=== PATIENT | male | born 1960 | race African-American/Black ===

== ENCOUNTER 2018-07-14 19:31 | Observation (INO) ==
[2018-07-14] MEDS ORDERED: predniSONE 20 MG TABLET PO ONE (19:38)
[2018-07-14] MEDS ORDERED: Ipratropium/Albuterol Neb 3 ML IH ONE (19:38)
--- NOTE | 2018-07-14 19:46 | Emergency Department Note ---
Disposition Clinical Impression: COPD (chronic obstructive pulmonary disease) with acute bronchitis Disposition: Still a Patient General Adult HPI - General Chief complaint: ED Shortness of Breath/Dyspnea Stated complaint: SHORTNESS OF BREATH Time Seen by Provider: 07/14/18 19:33 Source: patient Limitations: no limitations - History of Present Illness HPI Narrative: Attestation note: Patient was seen with the emergency medicine resident/nurse practitioner/physician insurance sales assistant/transitional resident/medical student: Dr. SAM LAUREN I have personally performed a face to face evaluation on this patient. I have reviewed and agree with history and physical examination patient management and disposition. Briefly the salient points of the case are as follows: 57-year-old Citizen Of [place] male smoker advanced COPD we just Admitted Him for Elevated Troponin Was Admitted to the Left Heart Catheter Which Was Normal. Discharge Him Home with Elevated Troponin Secondary to COPD Comes Back with after Being Discharged Today and Not for Prednisone and Zithromax and Has Not Taken Them for Wheezing and Short of Breath. Moderate Respiratory Distress with Intercostal Retractions Tripoding and Tracheal Tugging. Patient Getting Triple DuoNeb's Steroids Chest X-Ray Screening Labs EKG. Providing 45 Minutes Critical Care Service This Patient. If the Patient Cannot Be Turned around and He Says Symptomatic Will Need to Be Admitted. Pain Scale: 7 - Related Data Home Medications Medication Instructions Recorded Confirmed Albuterol Sulfate [Albuterol 2 puff IN Q4-6H PRN 04/19/16 07/12/18 Inhaler] Aspirin [Lo-Dose Aspirin EC] 81 mg PO DAILY 04/19/16 07/12/18 Cholecalciferol (Vitamin D3) 1,000 unit PO DAILY 04/19/16 07/12/18 [Children's Vitamin D3] Ferrous Sulfate [Iron] 325 mg PO BIDWM 04/19/16 07/12/18 Metoprolol Tartrate [Lopressor] 50 mg PO BID 04/19/16 07/12/18 Omeprazole [PriLOSEC] 20 mg PO DAILY 04/19/16 07/12/18 Simvastatin [Zocor] 20 mg PO DAILY 04/19/16 07/12/18 cloZAPine [Clozaril] 300 mg PO TID 04/19/16 07/12/18 Previous Rx's Medication Instructions Recorded Azithromycin [Zithromax Tri-Cole] 500 mg PO DAILY 5 Days #5 tablet 12/26/18 predniSONE [PredniSONE] 40 mg PO DAILY 5 Days #10 tablet 07/12/18 Allergies Allergy/AdvReac Type Severity Reaction Status Date / Time fluphenazine [From Prolixin] Allergy Rash Verified 01/01/16 17:09 Thiothixene Allergy Rash Verified 01/01/16 17:09 trihexyphenidyl Allergy Rash Verified 01/01/16 17:09 novamine Allergy Rash Uncoded 01/01/16 17:09 Past Medical History - Past Medical History Medical history: Reports: COPD, coronary artery disease, hyperlipidemia, hypertension Psychiatric history: Reports: schizophrenia - Social History Smoking Status: Current every day smoker Smokeless Tobacco Status: No Alcohol use: Reports: none Drug use: Reports: none Physical Exam - General Limitations: no limitations General appearance: alert, anxious Course Vital Signs Temperature 98.1 F 07/14/18 19:37 Pulse Rate 126 07/14/18 19:37 Respiratory Rate 26 07/14/18 19:37 Blood Pressure 123/74 07/14/18 19:37 O2 Sat by Pulse Oximetry 97 07/14/18 19:37 Temperature 98.1 F 07/14/18 19:37 Pulse Rate 126 07/14/18 19:37 Respiratory Rate 26 07/14/18 19:37 Blood Pressure 123/74 07/14/18 19:37 O2 Sat by Pulse Oximetry 97 07/14/18 19:37 Oxygen Delivery Oxygen Delivery Nasal Cannula
--- NOTE | 2018-07-14 20:08 | Emergency Department Note ---
Disposition Clinical Impression: COPD (chronic obstructive pulmonary disease) with acute bronchitis, Hypoxia Disposition: Admitted As Inpatient Condition: Fair Forms: ED Satisfaction Letter General Adult HPI - General Stated complaint: SHORTNESS OF BREATH Time Seen by Provider: 07/14/18 19:33 Source: patient Mode of arrival: EMS Limitations: no limitations Nursing Notes Reviewed: Yes Vital Signs Reviewed: Yes - History of Present Illness HPI Narrative: 57-year-old male with past medical history including COPD, CAD, hypertension, presenting with chief complaint of shortness of breath and wheezing since this morning. Patient had a recent admission on July 11 for COPD exacerbation and elevated troponin. Received duo nebs and prednisone. He had a left heart catheterization that showed normal coronaries. Troponin elevation likely secondary to hypoxia from COPD exacerbation. He was discharged home on Jul 12 with prednisone and amoxicillin. The patient states he did not fill his prescriptions. All day, the patient is complaining of worsening shortness of breath and wheezing. He states he has been using his inhalers and states "he is a wrong medication for them" without improvement. He denies fevers at home. He denies chest pain, nausea, abdominal pain, diarrhea. Pain Scale: 7 - Related Data Home Medications Medication Instructions Recorded Confirmed Albuterol Sulfate [Albuterol 2 puff IN Q4-6H PRN 04/19/16 07/12/18 Inhaler] Aspirin [Lo-Dose Aspirin EC] 81 mg PO DAILY 04/19/16 07/12/18 Cholecalciferol (Vitamin D3) 1,000 unit PO DAILY 04/19/16 07/12/18 [Children's Vitamin D3] Ferrous Sulfate [Iron] 325 mg PO BIDWM 04/19/16 07/12/18 Metoprolol Tartrate [Lopressor] 50 mg PO BID 04/19/16 07/12/18 Omeprazole [PriLOSEC] 20 mg PO DAILY 04/19/16 07/12/18 Simvastatin [Zocor] 20 mg PO DAILY 04/19/16 07/12/18 cloZAPine [Clozaril] 300 mg PO TID 04/19/16 07/12/18 Previous Rx's Medication Instructions Recorded Azithromycin [Zithromax Tri-Cole] 500 mg PO DAILY 5 Days #5 tablet 07/12/18 predniSONE [PredniSONE] 40 mg PO DAILY 5 Days #10 tablet 07/12/18 Allergies Allergy/AdvReac Type Severity Reaction Status Date / Time fluphenazine [From Prolixin] Allergy Rash Verified 01/01/16 17:09 Thiothixene Allergy Rash Verified 01/01/16 17:09 trihexyphenidyl Allergy Rash Verified 01/01/16 17:09 novamine Allergy Rash Uncoded 01/01/16 17:09 All systems ED: reviewed and negative except as stated. Review of Systems: As Per HPI Constitutional: Denies: fever, chills ENT ED: Denies: ear pain, throat pain Cardiovascular: Denies: chest pain, palpitations Respiratory: Reports: cough, dyspnea, wheezes Gastrointestinal: Denies: abdominal pain, nausea, vomiting, diarrhea Genitourinary: Denies: dysuria Integumentary: Denies: rash Neurological: Denies: headache, weakness Past Medical History - Past Medical History Attestation: Yes The following information was validated with the patient. Source: patient Medical history: Reports: COPD, coronary artery disease, hyperlipidemia, hypertension Psychiatric history: Reports: schizophrenia - Social History Smoking Status: Current every day smoker Smokeless Tobacco Status: No Alcohol use: Reports: none Drug use: Reports: none Physical Exam - General Limitations: no limitations General appearance: alert, anxious - Head Head exam: atraumatic, normocephalic, normal inspection - Eye Eye exam: Present: normal appearance, EOMI - ENT ENT exam: normal exam, normal oropharynx, mucous membranes moist - Neck Neck exam: Present: normal inspection, full ROM, trachea midline - Chest Chest inspection: Present: normal inspection, symmetric chest wall rise - Respiratory Respiratory exam: Present: other (Bilateral expiratory wheezing. On oxygen per nasal cannula) - Cardiovascular Cardiovascular exam: Present: normal rhythm, tachycardia, normal heart sounds - Abdominal Exam Abdominal exam: Present: soft, Non-Tender. Absent: tenderness, distention, guarding, rebound, rigidity - Extremities Exam Extremities exam: Present: normal inspection, full ROM. Absent: tenderness, pedal edema - Neurological Exam Neurological exam: Present: alert, oriented X3 - Psychiatric Psychiatric exam: Present: normal affect, normal mood - Skin Skin exam: Present: warm, dry, intact, normal color Course Vital Signs Temperature 98.1 F 07/14/18 19:37 Pulse Rate 126 07/14/18 19:37 Respiratory Rate 26 07/14/18 19:37 Blood Pressure 123/74 07/14/18 19:37 O2 Sat by Pulse Oximetry 97 07/14/18 19:37 Temperature 98.1 F 07/14/18 19:37 Pulse Rate 126 07/14/18 19:37 Respiratory Rate 20 07/14/18 20:05 Blood Pressure 123/74 07/14/18 19:37 O2 Sat by Pulse Oximetry 96 07/14/18 20:05 Oxygen Delivery Oxygen Delivery Nasal Cannula Medical Decision Making - [facility] Narrative Medical decision making narrative: Patient recently discharged today for COPD exacerbation. He underwent a left heart catheterization due to elevated troponin and he had normal coronaries. Elevated troponin secondary to hypoxia from acute COPD exacerbation. He was discharged home with amoxicillin and prednisone. Patient states he has not refilled these prescriptions. Presenting with respiratory distress. Requiring oxygen here. Significant wheezing bilaterally on examination. We will give DuoNeb treatments. Check chest x-ray, EKG, CBC, BMP, troponin. Prednisone is also given. If no improvement, anticipate patient will be admitted. 20:50 Wheezing improved. Patient is still feeling short of breath. He is still on oxygen. 21:00 Chest x-ray results reviewed. No acute cardiopulmonary process. It is unchanged from prior x-ray on recent admission. EKG with no acute ischemic changes. Troponin is 0.04. Troponin was more elevated on admission reaching 0.12. He was discharged with troponin at 0.04. Patient ambulated without oxygen. His oxygen saturations dropped to 83%. He was placed back on oxygen at 3 L back in the room. We will consult hospitalist for admission for COPD exac erbation. 22:45 Discussed with Hospitalist, Dr. Luz who accepts admission. Patient's tachycardia likely secondary to duoneb treatments and is improving. He is still requiring 3L O2 per NC and satting at 96%. He is remaining stable. Admitted for further management of COPD exacerbation. - Medical Records Medical records reviewed: Yes I reviewed the patient's medical records. - Lab Data Lab results reviewed: Yes I reviewed the patient's lab results. Result diagrams: 07/14/18 20:00 Lab Results 07/14/18 Range/Units 20:00 WBC 16.2 H (4.3-11.1) K/mcL RBC 4.47 (4.19-5.50) M/mcL Hgb 13.8 (12.9-16.9) g/dL Hct 39.8 (37.5-50.1) % MCV 89.0 (83.0-100.0) fL MCH 30.9 (28.0-33.3) pg MCHC 34.7 (31.6-35.5) g/dL RDW 15.9 H (11.5-14.5) % Plt Count 140 (140-400) K/mcL MPV 10.8 (9.4-12.4) fL - Radiology Data Radiology results reviewed: Yes I reviewed the patient's radiology results. Chest X-Ray 07/14/18 19:38 IMPRESSION: No acute cardiopulmonary disease or significant interval change from prior study 07/11/2018. D/ / Souleymane Mendoza / Souleymane Mendoza Interpreting Provider: Souleymane Mendoza - EKG Data EKG #1 EKG attestation: Yes I reviewed and interpreted this EKG. EKG results narrative: EKG from today at 1945 shows sinus tachycardia with heart rate 120. There is a right bundle-branch block and left anterior fascicular block. This is compared to prior EKG on 07/11/2018. It is unchanged. There are no acute ischemic changes noted.
[2018-07-14 20:43] LABS: Basophils # 0.1 K/mcL (0.0-0.2); Basophils % 0.4 %; Eosinophils # 0.5 K/mcL (0.0-0.6); Eosinophils % 2.9 %; Hematocrit 39.8 % (37.5-50.1); Hemoglobin 13.8 g/dL (12.9-16.9); Immature Granulocytes % 0.6 % (0-4); Lymphocytes # 3.3 K/mcL (0.6-4.6); Lymphocytes % 20.5 %; Mean Corpuscular HGB Conc 34.7 g/dL (31.6-35.5); Mean Corpuscular Hemoglobin 30.9 pg (28.0-33.3); Mean Platelet Volume 10.8 fL (9.4-12.4); Monocytes # 1.6 K/mcL (0.0-1.3); Monocytes % 9.8 %; Platelet Count 140 K/mcL (140-400); Red Blood Count 4.47 M/mcL (4.19-5.50); Red Cell Distribution Width 15.9 % (11.5-14.5); Segmented Neutrophils % 65.8 %
[2018-07-14 20:46] LABS: Neutrophils # 10.7 K/mcL (1.6-8.9)
[2018-07-14 21:05] LABS: BUN/Creatinine Ratio 17 (6-26); Blood Urea Nitrogen 11 mg/dL (6-20); Calcium 8.6 mg/dL (8.6-10.3); Carbon Dioxide 31 mEq/L (23-29); Chloride 97 mEq/L (98-107); Glucose 112 mg/dL (70-105); Osmolality,Calculated 278 (280-300); Potassium 3.5 mEq/L (3.5-5.1); Sodium 134 mEq/L (136-145); eGFR For Non-African Americans > 60 (> 60)
[2018-07-14 21:10] LABS: Troponin I 0.04 ng/mL (< 0.04)
[2018-07-14 21:19] LABS: Reactive Lymphocytes Present (Not Present)
--- NOTE | 2018-07-15 00:26 | Internal Med History&Physical ---
Date of Encounter: 07/15/18 Internal Medicine - H&P: HPI History of present illness: 57-year-old male with past medical history including COPD, CAD, hypertension, presenting with progressive worseningof shortness of breath and wheezing since this morning. The patient was just discharged from the hospital on July 12 after he was treated for COPD exacerbation and elevated troponin, she was discharged on prednisone and amoxicillin however he did not fill his prescription, he also had history of left heart catheterization which shows no significant abnormalities. The patient was admitted for further evaluation and management of COPD exacerbation Past Med Surg Social Fam HX - Past Medical History Medical history: COPD, coronary artery disease, hyperlipidemia, hypertension Additional medical history: orthostatic hypotension, congenital metatrsus varus, ishemic cardiomyopathy Psychiatric history: schizophrenia - Social History Smoking Status: Current every day smoker Smokeless Tobacco Status: No Alcohol use: none Drug use: none - Family History Mother Hx Family Cardiac Disorders: Yes Father Hx Family Cardiac Disorders: Yes Internal Medicine - H&P: Meds Albuterol Sulfate [Albuterol Inhaler] 2 puff IN Q4-6H PRN 04/19/16 [History] Aspirin [Lo-Dose Aspirin EC] 81 mg PO DAILY 04/19/16 [History] Cholecalciferol (Vitamin D3) [Children's Vitamin D3] 1,000 unit PO DAILY 04/19/16 [History] Ferrous Sulfate [Iron] 325 mg PO BIDWM 04/19/16 [History] Metoprolol Tartrate [Lopressor] 50 mg PO BID 04/19/16 [History] Omeprazole [PriLOSEC] 40 mg PO DAILY 04/19/16 [History] Simvastatin [Zocor] 20 mg PO DAILY 04/19/16 [History] cloZAPine [Clozaril] 300 mg PO TID 04/19/16 [History] Azithromycin [Zithromax Tri-Cole] 500 mg PO DAILY 5 Days #5 tablet 07/12/18 [Rx] predniSONE [PredniSONE] 40 mg PO DAILY 5 Days #10 tablet 07/12/18 [Rx] Divalproex (24 HR) [Depakote ER (24 HR)] 1,000 mg PO HS 07/14/18 [History] Fluvoxamine Maleate [Fluvoxamine Maleate ER] 50 mg PO DAILY 07/14/18 [History] Allergy/AdvReac Type Severity Reaction Status Date / Time fluphenazine [From Prolixin] Allergy Rash Verified 01/01/16 17:09 Thiothixene Allergy Rash Verified 01/01/16 17:09 trihexyphenidyl Allergy Rash Verified 01/01/16 17:09 novamine Allergy Rash Uncoded 01/01/16 17:09 All Systems PM: A 10-system review of systems was performed and is negative for pertinent findings except as documented above in the HPI. - Constitutional Constitutional: no chills, no fever(s), no night sweats - Cardiovascular Cardiovascular ROS IM: dyspnea, no chest pain, no diaphoresis, no lightheadedness, no palpitations, no syncope - Respiratory Respiratory: cough, dyspnea, wheezing, no excessive phlegm production - Gastrointestinal Gastrointestinal: no abdominal pain, no diarrhea, no hematemesis, no hematochezia, no melena, no nausea, no vomiting - Neurological Neurological ROS: no confusion, no convulsions, no focal weakness, no numbness, no tingling, no tremor(s) - Constitutional Vitals: Temp Pulse Resp BP Pulse Ox 98.1 F 119 22 153/86 96 07/14/18 19:37 07/14/18 21:55 07/14/18 21:55 07/14/18 21:55 07/14/18 21:55 General appearance: Present: A&O X 3 - Head Head exam: Present: atraumatic, normocephalic - Neck Neck exam general surgery: Present: supple, trachea midline. Absent: lymphadenopathy - Respiratory Respiratory exam: Present: rhonchi. Absent: accessory muscle use, rales, wheezes - Cardiovascular Cardiovascular exam: Present: RRR, +S1, +S2. Absent: diastolic murmur, gallop, rubs, systolic murmur - GI/Abdominal GI/Abdominal exam: Present: normal bowel sounds, soft, no peritoneal signs. Absent: distended, tenderness - Extremities Exam Extremities exam: Present: warm, radial pulses palpable and symmetrical. Absent: calf tenderness, cyanotic, pedal edema Internal Med - H&P Results - Labs CBC & Chem 7: 07/14/18 20:00 07/14/18 20:00 Labs: Short CBC 07/14/18 Range/Units 20:00 WBC 16.2 H (4.3-11.1) K/mcL Hgb 13.8 (12.9-16.9) g/dL Hct 39.8 (37.5-50.1) % Plt Count 140 (140-400) K/mcL Neutrophils # 10.7 H (1.6-8.9) K/mcL BMP 07/14/18 20:00 Sodium 134 L Potassium 3.5 Chloride 97 L Carbon Dioxide 31 H BUN 11 Creatinine 0.63 L Glucose 112 H Calcium 8.6 Cardiac Enzymes 07/14/18 Range/Units 20:00 Troponin I 0.04 H* (< 0.04) ng/mL - Impressions ITS Impressions Chest X-Ray 07/14/18 19:38 IMPRESSION: No acute cardiopulmonary disease or significant interval change from prior study 07/11/2018. D/ / Souleymane Mendoza / Souleymane Mendoza Interpreting Provider: Souleymane Mendoza - Assessment and plan (1) Acute exacerbation of chronic obstructive airways disease Current Visit: No Status: Acute Assessment and plan: - SOB due to *COPD exacerbation caused medication nonocompliance PLAN: - Aerosols q 4 hr and PRN SOB - Solu-medrol 40 mg IV q 6 hr - O2 to keep SpO2 higher than 92% (SpO higher than 95% if CAD) - CBCD, BMP in AM - Sputum Gram stain, C+S - Tylenol 650 mg PO q 4-6 hr PRN pain/fever - Heparin 5000 U SQ BID - Home meds - check the list and restart - Azithromycine 500 po daily (2) Hypertension Current Visit: No Status: Chronic Assessment and plan: We will continue home medication Qualifiers: Hypertension type: unspecified Qualified Code(s): I10 - Essential (primary) hypertension (3) HLD (hyperlipidemia) Current Visit: No Status: Chronic Assessment and plan: We will continue home statin Qualifiers: Hyperlipidemia type: unspecified Qualified Code(s): E78.5 - Hyperlipidemia, unspecified (4) Tobacco abuse Current Visit: No Status: Chronic - Time Spent With Patient Total time spent is greater than 50% in coordination of care (as documented) at patient's floor/unit and/or counseling patient:
[2018-07-15] MEDS ORDERED: Naloxone 0.4 MG/ML INJ IVP PRN (00:41)
[2018-07-15] MEDS ORDERED: Acetaminophen 325 MG TABLET PO PRN (00:41)
[2018-07-15] MEDS ORDERED: *HR* HYDROcodone/Acet 5/325 mg TABLET PO PRN (00:41)
[2018-07-15] MEDS: Azithromycin 500 MG in D5% in Water 250 ML IVPB SCH (04:33)
[2018-07-15] MEDS: Ipratropium/Albuterol Neb 3 ML IH SCH ×4 (05:06→22:21)
[2018-07-15] MEDS: MethylPREDNISolone 40 MG/ML VIAL IVP SCH ×3 (06:20→18:00)
[2018-07-15] MEDS: Aspirin Enteric Coated 81 MG Tablet PO SCH (07:56)
[2018-07-15] MEDS: cloZAPine 100 MG TABLET PO SCH ×3 (07:56→20:46)
[2018-07-15] MEDS: Cholecalciferol (D-3) 1,000 UNIT TABLET PO SCH (07:57)
[2018-07-15 08:03] LABS: Bilirubin,Urine Negative (Negative); Blood,Urine Negative (Negative); Clarity,Urine Clear (Clear); Color,Urine Yellow (Yellow); Glucose,Urine (UA) 100 mg/dL (Normal); Ketones,Urine Trace mg/dL (Negative); Leukocyte Esterase,Urine Negative (Negative); Nitrite,Urine Negative (Negative); PH,Urine 6.5 pH Units (5.0-8.0); Protein,Urine Negative (Neg-Trace); Specific Gravity,Urine 1.017 (1.010-1.025); Urobilinogen,Urine Normal (Normal)
--- NOTE | 2018-07-15 08:31 | Event Note ---
Date of Encounter: 07/15/18 Time of Encounter: 09:40 Mr Denny was just discharged from the hospital back to his senior care after copde and chest pain admit During that admit he was treated for copde with azithro and steroids. He had trop elevations and ekg changes with concern for nstemi. He had LHC that showed normal coronaries. He was dc back to his senior care where reportedly they could not fill his dc rxs and he took none of the prescribed meds upon dc. He represented with sob, wheezing and cough. He has hx of schizophrenia on multiple antipsychotics and has required much redirection this admission thus far regarding wearing his oxygen, permitting lab draws and med administration. he is awake with increased work of breathing with no o2 on. He is alert and answers all questions, though needs redirection to stay on topic. O2 placed on pt and notes he feels better on it, encouraged to leave in place. + cough, + wheezing, denies fevers/chills. agreeable to nicotine patch. denies cp, pressure, palpitations gen- alert, awake,appears stated age eyes- pupils equal round ent- dry mucus membranes cv- reg rate and rhythm, normal s1,s2, no murmurs appreciated lungs- diffuse exp wheezing, no rhonchi or crackles, normal resp effort on o2 2L nc abd- soft, non tender, non distended, + bs neuro- AAOxperson, city, situation but thinks at [facility] COPDE- most likely 2/2 non compliance with dc meds on dc the other day- cont iv azithro, iv steroids, nebs, if refusing iv meds can always switch to oral, add rocephin given refractory to prior tx Recent trop elevation- conts to down trend, lhc this past admit nromal cornaries, ekg this admit without significant change from previous, pt without chest pain Schizophrenia- cont clozaril, luvox, depakote HTN- stable, cont home meds and monitor Tachycardia- appears sinus- give gentle ivfs as he appears dry, monitor lytes, he is refusing morning labs at this time, cont tele and home BB hoping he will agree to am labs today but suspect he will not
[2018-07-15] MEDS: cefTRIAXone 1,000 MG in Water for inj. (sterile) 20 ML 10 ML IVP SCH (12:41)
[2018-07-15] MEDS: Nicotine 21 MG PATCH.TD24 TD SCH (12:42)
[2018-07-15] MEDS: 0.9 % Sodium Chloride 1,000 ML IVC SCH (12:42)
[2018-07-15 17:33] LABS: Hematocrit 42.1 % (37.5-50.1); Hemoglobin 14.3 g/dL (12.9-16.9); Mean Corpuscular Hemoglobin 30.6 pg (28.0-33.3); Mean Platelet Volume 10.8 fL (9.4-12.4); Platelet Count 157 K/mcL (140-400); Red Blood Count 4.68 M/mcL (4.19-5.50); Red Cell Distribution Width 15.8 % (11.5-14.5)
[2018-07-15 17:41] LABS: INR 0.9; Prothrombin Time 10.3 Seconds (9.4-12.1)
[2018-07-15 17:44] LABS: Activated Partial Thrombo Time 30.5 Seconds (26.0-36.0)
[2018-07-15 17:59] LABS: Alanine Aminotransferase 21 Units/L (7-52); Albumin 3.5 g/dL (3.5-5.7); Albumin/Globulin Ratio 1.5 (1.1-2.2); Alkaline Phosphatase 80 Units/L (34-104); Aspartate Amino Transferase 23 Units/L (13-39); BUN/Creatinine Ratio 13 (6-26); Bilirubin,Total 0.3 mg/dL (0.3-1.0); Blood Urea Nitrogen 12 mg/dL (6-20); Calcium 8.9 mg/dL (8.6-10.3); Carbon Dioxide 28 mEq/L (23-29); Chloride 101 mEq/L (98-107); Chol/HDL Ratio 2.7 (0-4.9); Cholesterol 146 mg/dL (< 200); Globulin 2.3 g/dL (2.4-3.5); Glucose 157 mg/dL (70-105); HDL Cholesterol 55 mg/dL (40-59); LDL Cholesterol,Calculated 75 mg/dL (0-99); Osmolality,Calculated 285 (280-300); Phosphorous 3.7 mg/dL (2.7-4.5); Potassium 4.7 mEq/L (3.5-5.1); Sodium 136 mEq/L (136-145); Total Protein 5.8 g/dL (6.4-8.9); Triglycerides 80 mg/dL (< 150); eGFR For Non-African Americans > 60 (> 60)
[2018-07-15] MEDS: Divalproex (24 HR) 500 MG TABLET PO SCH (20:46)
[2018-07-16] MEDS: MethylPREDNISolone 40 MG/ML VIAL IVP SCH ×3 (00:09→19:19)
[2018-07-16] MEDS: Azithromycin 500 MG in D5% in Water 250 ML IVPB SCH (00:10)
[2018-07-16] MEDS: Ipratropium/Albuterol Neb 3 ML IH SCH ×2 (04:24→06:58)
--- NOTE | 2018-07-16 08:22 | Internal Med Progress Note ---
Hospitalist Progress Note - Encounter Date of Encounter: 07/16/18 Time of Encounter: 09:10 - Subjective Interval History: awake, alert, pleasant. cough better, no sob on room air currently, denies wheezing. He is denying fevers, chills, and has no complaints. no cp or palpitations - Exam Vitals: Temp Pulse Resp BP Pulse Ox 98.5 F 113 16 132/77 93 07/16/18 03:30 07/16/18 07:20 07/16/18 07:20 07/16/18 07:20 07/16/18 07:20 Exam: gen- alert, awake,appears stated age eyes- pupils equal round ent-mmm cv- tachy rate and reg rhythm, normal s1,s2, no murmurs appreciated lungs- ctabl, no wheezing no rhonchi or crackles, normal resp effort on room air abd- soft, non tender, non distended, + bs neuro- AAOxperson, city, situation - Assessment and Plan (1) Acute exacerbation of chronic obstructive airways disease Current Visit: No Status: Acute Assessment and Plan: most likely 2/2 non compliance with dc meds on dc the other day - cont iv azithro + rocephin -decrease IV steroids -changed nebs to xopenex given tachycardia - if refusing iv meds can always switch to oral -prn o2 nc (2) Hypertension Current Visit: No Status: Chronic Assessment and Plan: stable, cont home meds and monitor (3) HLD (hyperlipidemia) Current Visit: No Status: Chronic Assessment and Plan: continue home statin (4) Tobacco abuse Current Visit: No Status: Chronic Assessment and Plan: educationprovided nicotine patch ordered (5) Tachycardia Current Visit: Yes Status: Acute Assessment and Plan: sinus tachycardia -gentle ivfs as he appears dry, monitor lytes, he typically refuses morning labs , cont tele and home BB -clorazil can cause tachycardia , also pt notes his heart races when he "gets fired up" but he is asymptomatic and BPs are normotensive (6) Schizophrenia Current Visit: Yes Status: Acute Assessment and Plan: cont clozaril, luvox, depakote -pt is easily redirectable (7) Troponin level elevated Current Visit: Yes Status: Acute Assessment and Plan: resolved Recent trop elevation-lhc this past week nromal coronaries, ekgs this admit without significant change from previous, pt without chest pain (8) Leukocytosis Current Visit: Yes Status: Acute Assessment and Plan: WBC elevation 16.2 on admit, down to 12.8 but increase to 22.9 today He has been on high dose steroids and they are decreased today will repeat cbc to confirm accurate and check lactate- however it usually takes some time before he is agreeable to any lab draws -hemodynamically stable, no fevers and clincially greatly improved today -rn aware of plan, will follow labs if he permits them to be drawn, if fever additional testing will be ordered- cont azithro + rocephin DVT Prophylaxis: scds and he is ambulating throughout the halls routinely - Time Spent with Patient Total time spent is greater than 50% in coordination of care (as documented) at patient's floor/unit and/or counseling patient: 25 - 35 minutes Plan of Care Discussed with: patient Internal Medicine: Result - Labs CBC & Chem 7: 07/16/18 09:15 07/16/18 09:15 Labs: Short CBC 07/15/18 Range/Units 17:20 WBC 12.8 H (4.3-11.1) K/mcL Hgb 14.3 (12.9-16.9) g/dL Hct 42.1 (37.5-50.1) % Plt Count 157 (140-400) K/mcL BMP 07/15/18 17:20 Sodium 136 Potassium 4.7 D Chloride 101 Carbon Dioxide 28 BUN 12 Creatinine 0.90 Glucose 157 H Calcium 8.9 Cardiac Enzymes 07/15/18 Range/Units 17:20 Troponin I < 0.03 (< 0.04) ng/mL Liver Function 07/15/18 Range/Units 17:20 Total Bilirubin 0.3 (0.3-1.0) mg/dL AST 23 (13-39) Units/L ALT 21 (7-52) Units/L Alkaline Phosphatase 80 (34-104) Units/L Albumin 3.5 (3.5-5.7) g/dL - ABG Interpretation ABG results: PT/INR, D-dimer PT 10.3 Seconds (9.4-12.1) 07/15/18 17:20 Consult Discharge Plan - Plan [facility]Primary Care Provider[facility] - (2) Hypertension Qualifiers: Hypertension type: unspecified Qualified Code(s): I10 - Essential (primary) hypertension (3) HLD (hyperlipidemia) Qualifiers: Hyperlipidemia type: unspecified Qualified Code(s): E78.5 - Hyperlipidemia, unspecified (8) Leukocytosis Qualifiers: Leukocytosis type: unspecified Qualified Code(s): D72.829 - Elevated white blood cell count, unspecified
[2018-07-16] MEDS: cefTRIAXone 1,000 MG in Water for inj. (sterile) 20 ML 10 ML IVP SCH (09:11)
[2018-07-16] MEDS: cloZAPine 100 MG TABLET PO SCH ×3 (09:11→21:08)
[2018-07-16] MEDS: Cholecalciferol (D-3) 1,000 UNIT TABLET PO SCH (09:12)
[2018-07-16] MEDS: Aspirin Enteric Coated 81 MG Tablet PO SCH (09:12)
[2018-07-16] MEDS: Nicotine 21 MG PATCH.TD24 TD SCH (09:12)
[2018-07-16 09:27] LABS: Basophils % 0.1 %; Hemoglobin 13.9 g/dL (12.9-16.9); Immature Granulocytes % 0.7 % (0-4); Lymphocytes # 1.8 K/mcL (0.6-4.6); Lymphocytes % 7.8 %; Mean Corpuscular HGB Conc 33.9 g/dL (31.6-35.5); Mean Corpuscular Hemoglobin 30.7 pg (28.0-33.3); Mean Corpuscular Volume 90.5 fL (83.0-100.0); Mean Platelet Volume 10.9 fL (9.4-12.4); Monocytes # 0.9 K/mcL (0.0-1.3); Platelet Count 157 K/mcL (140-400); Red Blood Count 4.53 M/mcL (4.19-5.50); Red Cell Distribution Width 15.9 % (11.5-14.5); Segmented Neutrophils % 87.4 %
[2018-07-16 09:43] LABS: BUN/Creatinine Ratio 14 (6-26); Blood Urea Nitrogen 11 mg/dL (6-20); Calcium 8.8 mg/dL (8.6-10.3); Carbon Dioxide 27 mEq/L (23-29); Chloride 98 mEq/L (98-107); Glucose 164 mg/dL (70-105); Magnesium 1.8 mg/dL (1.6-2.6); Osmolality,Calculated 277 (280-300); Potassium 4.5 mEq/L (3.5-5.1); Sodium 132 mEq/L (136-145); eGFR For Non-African Americans > 60 (> 60)
[2018-07-16] MEDS: Levalbuterol Neb 0.63 MG/3 ML IH SCH ×3 (11:13→21:39)
[2018-07-16 16:06] LABS: Basophils % 0.1 %; Hemoglobin 13.8 g/dL (12.9-16.9); Immature Granulocytes % 0.6 % (0-4); Lymphocytes % 8.5 %; Mean Corpuscular HGB Conc 34.5 g/dL (31.6-35.5); Mean Corpuscular Hemoglobin 30.9 pg (28.0-33.3); Mean Corpuscular Volume 89.7 fL (83.0-100.0); Mean Platelet Volume 10.9 fL (9.4-12.4); Monocytes # 0.9 K/mcL (0.0-1.3); Monocytes % 3.6 %; Neutrophils # 20.8 K/mcL (1.6-8.9); Platelet Count 164 K/mcL (140-400); Red Blood Count 4.46 M/mcL (4.19-5.50); Red Cell Distribution Width 15.5 % (11.5-14.5); Segmented Neutrophils % 87.2 %
[2018-07-16] MEDS: 0.9 % Sodium Chloride 1,000 ML IVC SCH (19:19)
[2018-07-16] MEDS: Divalproex (24 HR) 500 MG TABLET PO SCH (21:08)
[2018-07-17] MEDS: Azithromycin 500 MG in D5% in Water 250 ML IVPB SCH (00:06)
[2018-07-17] MEDS: Levalbuterol Neb 0.63 MG/3 ML IH SCH ×4 (04:44→22:42)
[2018-07-17] MEDS: Aspirin Enteric Coated 81 MG Tablet PO SCH (08:44)
[2018-07-17] MEDS: cloZAPine 100 MG TABLET PO SCH ×3 (08:45→21:38)
[2018-07-17] MEDS: Cholecalciferol (D-3) 1,000 UNIT TABLET PO SCH (08:45)
[2018-07-17] MEDS: Nicotine 21 MG PATCH.TD24 TD SCH (08:45)
[2018-07-17 09:55] LABS: BUN/Creatinine Ratio 14 (6-26); Blood Urea Nitrogen 12 mg/dL (6-20); Calcium 9.4 mg/dL (8.6-10.3); Carbon Dioxide 31 mEq/L (23-29); Chloride 98 mEq/L (98-107); Glucose 148 mg/dL (70-105); Magnesium 1.8 mg/dL (1.6-2.6); Osmolality,Calculated 283 (280-300); Potassium 4.3 mEq/L (3.5-5.1); Sodium 135 mEq/L (136-145); eGFR For Non-African Americans > 60 (> 60)
[2018-07-17 09:58] LABS: Eosinophils % 0.8 %; Segmented Neutrophils % 68.7 %
[2018-07-17] MEDS: cefTRIAXone 1,000 MG in Water for inj. (sterile) 20 ML 10 ML IVP SCH (10:04)
[2018-07-17] MEDS: MethylPREDNISolone 40 MG/ML VIAL IVP SCH (10:05)
[2018-07-17 10:32] LABS: Basophils % 0.2 %; Eosinophils # 0.1 K/mcL (0.0-0.6); Hematocrit 42.6 % (37.5-50.1); Hemoglobin 14.7 g/dL (12.9-16.9); Immature Granulocytes % 1.4 % (0-4); Immature Platelets 6.5 % (1.1-6.1); Lymphocytes # 3.9 K/mcL (0.6-4.6); Lymphocytes % 22.7 %; Mean Corpuscular HGB Conc 34.5 g/dL (31.6-35.5); Mean Corpuscular Hemoglobin 30.8 pg (28.0-33.3); Mean Corpuscular Volume 89.1 fL (83.0-100.0); Mean Platelet Volume 11.5 fL (9.4-12.4); Monocytes # 1.1 K/mcL (0.0-1.3); Monocytes % 6.2 %; Neutrophils # 11.8 K/mcL (1.6-8.9); Platelet Count 165 K/mcL (140-400); Red Blood Count 4.78 M/mcL (4.19-5.50); Red Cell Distribution Width 15.9 % (11.5-14.5)
--- NOTE | 2018-07-17 11:41 | Internal Med Progress Note ---
<Moisés Sandoval - Last Filed: 07/17/18 11:39> Hospitalist Progress Note - Encounter Date of Encounter: 07/17/18 Time of Encounter: 08:15 - Subjective Interval History: Pt is awake, alert, in no acute distress, denies any SOB, and is on room air currently. He admits to occasional cough, but says it has improved. He denies any nausea, vomiting, diarrhea, chills, fever, fatigue, dyspnea, chest pain, palpitations. - Exam Vitals: Temp Pulse Resp BP Pulse Ox 97.8 F 92 18 109/81 92 07/17/18 10:59 07/17/18 10:59 07/17/18 11:32 07/17/18 10:59 07/17/18 11:32 Exam: gen- alert, awake,appears stated age ent-mmm cv- regular rate and rhythm, normal s1,s2, no murmurs appreciated lungs- bilateral wheezes, but no rhonchi or crackles, normal resp effort on room air abd- soft, non tender, non distended, + bs neuro- AAOxperson, place, situation extremities - no lower extremity edema, normal skin turgor and sensation - Assessment and Plan (1) COPD (chronic obstructive pulmonary disease) with acute bronchitis Current Visit: Yes Status: Acute Assessment and Plan: - Discontinue rocephin - continue IV azithromycin - Starting tomorrow, 07/18/2018, begin oral steroid taper - PRN O2 NC - Upon discharge begin at-home treatment with Spiriva, and continue steroid taper - Assess pt for home oxygen therapy - (2) Leukocytosis Current Visit: Yes Status: Acute Assessment and Plan: - WBC count dropped from 23.9 yesterday to 17.2 today, following steroid dosage reduction - Lactate yesterday was 1.2 - Hemodynamically stable, no fevers, and clinically improved today - Blood cultures are still pending (3) Schizophrenia Current Visit: Yes Status: Chronic Assessment and Plan: continue clozaril, luvox, depakote - pt is easily redirectable (4) Tachycardia Current Visit: Yes Status: Resolved Assessment and Plan: Previous diagnosis of sinus tachycardia, HR today was 92. (5) Troponin level elevated Current Visit: Yes Status: Acute Assessment and Plan: - Resolved Recent trop elevation-[facility] this past week nromal coronaries, ekgs this admit without significant change from previous, pt without chest pain (6) HLD (hyperlipidemia) Current Visit: No Status: Chronic Assessment and Plan: continue home statin (7) Hypertension Current Visit: No Status: Chronic Assessment and Plan: stable, cont home meds and monitor (8) Tobacco abuse Current Visit: No Status: Chronic Assessment and Plan: education provided pt is doing well on nicotine patch DVT Prophylaxis: scds and he is ambulating throughout the halls routinely - Time Spent with Patient Total time spent is greater than 50% in coordination of care (as documented) at patient's floor/unit and/or counseling patient: Internal Medicine: Result - Labs CBC & Chem 7: 07/17/18 09:26 07/17/18 09:26 Labs: Short CBC 07/16/18 07/17/18 Range/Units 15:47 09:26 WBC 23.9 H 17.2 H (4.3-11.1) K/mcL Hgb 13.8 14.7 (12.9-16.9) g/dL Hct 40.0 42.6 (37.5-50.1) % Plt Count 164 165 (140-400) K/mcL Neutrophils # 20.8 H 11.8 H (1.6-8.9) K/mcL BMP 07/17/18 09:26 Sodium 135 L Potassium 4.3 Chloride 98 Carbon Dioxide 31 H BUN 12 Creatinine 0.84 Glucose 148 H Calcium 9.4 - ABG Interpretation ABG results: PT/INR, D-dimer PT 10.3 Seconds (9.4-12.1) 07/15/18 17:20 Consult Discharge Plan - Plan [facility]errals: [facility]Primary Care Provider[facility] - <Sparkle Adan - Last Filed: 07/17/18 13:14> Hospitalist Progress Note - Encounter Date of Encounter: 07/17/18 - Exam Vitals: Temp Pulse Resp BP Pulse Ox 97.8 F 92 18 109/81 92 07/17/18 10:59 07/17/18 10:59 07/17/18 11:32 07/17/18 10:59 07/17/18 11:32 - Assessment and Plan (1) Acute exacerbation of chronic obstructive airways disease Current Visit: No Status: Acute (2) Hypertension Current Visit: No Status: Chronic (3) HLD (hyperlipidemia) Current Visit: No Status: Chronic (4) Tobacco abuse Current Visit: No Status: Chronic (5) Tachycardia Current Visit: Yes Status: Resolved (6) Schizophrenia Current Visit: Yes Status: Chronic (7) Troponin level elevated Current Visit: Yes Status: Acute (8) Leukocytosis Current Visit: Yes Status: Acute - Time Spent with Patient Total time spent is greater than 50% in coordination of care (as documented) at patient's floor/unit and/or counseling patient: Internal Medicine: Result - Labs CBC & Chem 7: 07/17/18 09:26 07/17/18 09:26 Labs: Short CBC 07/16/18 07/17/18 Range/Units 15:47 09:26 WBC 23.9 H 17.2 H (4.3-11.1) K/mcL Hgb 13.8 14.7 (12.9-16.9) g/dL Hct 40.0 42.6 (37.5-50.1) % Plt Count 164 165 (140-400) K/mcL Neutrophils # 20.8 H 11.8 H (1.6-8.9) K/mcL BMP 07/17/18 09:26 Sodium 135 L Potassium 4.3 Chloride 98 Carbon Dioxide 31 H BUN 12 Creatinine 0.84 Glucose 148 H Calcium 9.4 - ABG Interpretation ABG results: PT/INR, D-dimer PT 10.3 Seconds (9.4-12.1) 07/15/18 17:20 - Attending Attestation The history, physical exam, and medical decision making was performed by medical student Jordan either while I was physically present and actively involved or I personally re-performed the exam and medical decision making. I have verified the accuracy of the medical student's documentation with regards to the history, physical exam findings, and medical decision making. Mr Denny was just discharged from the [facility] after copde and chest pain admit During that admit he was treated for copde with azithro and steroids. He had trop elevations and ekg changes with concern for nstemi. He had LHC that showed normal coronaries. He was dc back to his [facility] where reportedly they could not fill his dc rxs and he took none of the prescribed meds upon dc. He re presented with sob, wheezing and cough. He has hx of schizophrenia on multiple antipsychotics and has required much redirection this admission thus far regarding wearing his oxygen, permitting lab draws and med administration at times. awake, on room air and comfortable appearing. calm today. stating he is feeling better than last week. + cough but reduced frequency and improved sob with exertion. + wheezing. gen- alert, awake,appears stated age cv- reg rate and rhythm, normal s1,s2, no murmurs appreciated lungs- diffuse exp wheezing, no rhonchi or crackles, normal resp effort on ra neuro- AAOxperson, place, situation COPDE, improving- most likely 2/2 non compliance with dc meds on dc the other day- cont azithro to completion of course, nebs, will need set up for home neb/neb solution/inhaler upon dc and needs to be coordinated btwn social work and usp to prevent re admit for same issue as last time , 6 min walk to assess home o2 needs Schizophrenia- cont clozaril, luvox, depakote HTN- stable, cont home meds and monitor Tachycardia- sinus- resolved, monitor lytes, cont tele and home BB, may be side effect of clozaril WBC elevation now down trending again with steroid dose reduction- afebrile, no lactate elevation and clinically improved, cont azithro to complete course, no other identifiable source of infection, bl cxs ngtd dispo- pending SW involvement to assure discharge to us[facility] is in place with home needs assessed and in place prior to dc, hopefu for dc to [facility] in am <Moisés Sandoval - Last Filed: 07/17/18 11:39> (2) Leukocytosis Qualifiers: Leukocytosis type: unspecified Qualified Code(s): D72.829 - Elevated white blood cell count, unspecified (6) HLD (hyperlipidemia) Qualifiers: Hyperlipidemia type: unspecified Qualified Code(s): E78.5 - Hyperlipidemia, unspecified (7) Hypertension Qualifiers: Hypertension type: unspecified Qualified Code(s): I10 - Essential (primary) hypertension <Sparkle Adan M - Last Filed: 07/17/18 13:14> (2) Hypertension Qualifiers: Hypertension type: unspecified Qualified Code(s): I10 - Essential (primary) hypertension (3) HLD (hyperlipidemia) Qualifiers: Hyperlipidemia type: unspecified Qualified Code(s): E78.5 - Hyperlipidemia, unspecified (8) Leukocytosis Qualifiers: Leukocytosis type: unspecified Qualified Code(s): D72.829 - Elevated white blood cell count, unspecified
[2018-07-17] MEDS: Divalproex (24 HR) 500 MG TABLET PO SCH (21:38)
[2018-07-18] MEDS: Azithromycin 500 MG in D5% in Water 250 ML IVPB SCH (01:41)
[2018-07-18] MEDS: Levalbuterol Neb 0.63 MG/3 ML IH SCH ×4 (05:50→21:47)
--- NOTE | 2018-07-18 08:47 | Internal Med Progress Note ---
<Matthieu Benavidez - Last Filed: 07/18/18 12:43> Hospitalist Progress Note - Encounter Date of Encounter: 07/18/18 Time of Encounter: 08:00 - Subjective Interval History: Patient was seen and evaluated at the bedside. He is without complaints at this time. States that he is resting comfortably in bed. Denies shortness of laina th, chest pain, or palpitations. Denies cough, fever, or chills. - Exam Vitals: Temp Pulse Resp BP Pulse Ox 98.3 F 94 17 128/89 97 07/18/18 07:41 07/18/18 07:41 07/18/18 07:41 07/18/18 07:41 07/18/18 07:41 Exam: General: Seated upright in bed, no apparent distress HEENT: Atraumatic, moist mucous membranes, anicteric sclera Cardio: Regular rate and rhythm, no murmurs, rubs, or gallops auscultation Respiratory: Clear to auscultation bilaterally, no wheezing, rhonchi, or crackles Skin: No rashes or lesions noted Extremities: No swelling or edema Abdomen: Soft, nontender, nondistended Neuro: Alert and oriented to person, place, and situation, no focal deficits, cranial nerves intact bilaterally - Assessment and Plan (1) Acute exacerbation of chronic obstructive airways disease Current Visit: No Status: Acute Assessment and Plan: COPD exacerbation with recent discharge on 07/13/2018 Appears patient intermediate may not have filled his discharge medications per documentation, social work is looking into this COPD exacerbation is improving Plan: Continue azithromycin (day 4) for 5 day course, Rocephin discontinued Transitioned to by mouth steroid taper this a.m. Continue nebs 6 minute walk for home oxygen assessment Social work attempting to contact patient intermediate for discharge continuity, patient will require medications and home nebulizer upon discharge. (2) HLD (hyperlipidemia) Current Visit: No Status: Chronic Assessment and Plan: continue home statin (3) Hypertension Current Visit: No Status: Chronic Assessment and Plan: Blood pressure remains well-controlled during this stay continue current regimen. (4) Tobacco abuse Current Visit: No Status: Chronic Assessment and Plan: Nicotine patch available Smoking cessation education provided (5) Schizophrenia Current Visit: Yes Status: Chronic Assessment and Plan: Continue home medication regimen of Clozaril, Luvox, Depakote (6) Troponin level elevated Current Visit: Yes Status: Resolved Assessment and Plan: Mild elevation in troponin at 0.04 upon this admission, this is actually improved from prior admission Left heart catheter on 07/12/2018 did reveal normal coronary arteries to angiography. Troponin I less then 0.03 (7) Leukocytosis Current Visit: Yes Status: Acute Assessment and Plan: White blood cell elevation has been trending down No signs of infection, afebrile, normal lactate, blood cultures with negative growth to date WBC counts are trending downward with steroid taper plan: Continue steroid taper and monitor for signs or symptoms of infection Continue azithromycin to complete 5 day course for COPD exacerbation (8) DVT prophylaxis Current Visit: Yes Status: Acute Assessment and Plan: EPCDs bilateral lower extremities - Time Spent with Patient Total time spent is greater than 50% in coordination of care (as documented) at patient's floor/unit and/or counseling patient: Internal Medicine: Result - Labs CBC & Chem 7: 07/17/18 09:26 07/17/18 09:26 Labs: Short CBC 07/17/18 Range/Units 09:26 WBC 17.2 H (4.3-11.1) K/mcL Hgb 14.7 (12.9-16.9) g/dL Hct 42.6 (37.5-50.1) % Plt Count 165 (140-400) K/mcL Neutrophils # 11.8 H (1.6-8.9) K/mcL BMP 07/17/18 09:26 Sodium 135 L Potassium 4.3 Chloride 98 Carbon Dioxide 31 H BUN 12 Creatinine 0.84 Glucose 148 H Calcium 9.4 - ABG Interpretation ABG results: PT/INR, D-dimer PT 10.3 Seconds (9.4-12.1) 07/15/18 17:20 Consult Discharge Plan - Plan [facility]errals: [facility] [Primary Care Provider[facility] - Prescriptions: Levalbuterol Neb [Xopenex Neb] 0.63 mg IH Q8H PRN #24 vial.neb PRN Reason: Wheezing Nebulizer [Aeroeclipse] 1 each MC Q8H #1 each <Kylah Love - Last Filed: 07/18/18 17:01> Hospitalist Progress Note - Encounter Date of Encounter: 07/18/18 - Exam Vitals: Temp Pulse Resp BP Pulse Ox 97.9 F 104 16 129/85 97 07/18/18 15:34 07/18/18 15:34 07/18/18 15:34 07/18/18 15:34 07/18/18 15:34 - Assessment and Plan (1) Acute exacerbation of chronic obstructive airways disease Current Visit: No Status: Acute (2) Hypertension Current Visit: No Status: Chronic (3) HLD (hyperlipidemia) Current Visit: No Status: Chronic (4) Tobacco abuse Current Visit: No Status: Chronic (5) Schizophrenia Current Visit: Yes Status: Chronic (6) Troponin level elevated Current Visit: Yes Status: Resolved (7) Leukocytosis Current Visit: Yes Status: Acute (8) DVT prophylaxis Current Visit: Yes Status: Acute - Time Spent with Patient Total time spent is greater than 50% in coordination of care (as documented) at patient's floor/unit and/or counseling patient: Internal Medicine: Result - Labs CBC & Chem 7: 07/18/18 08:21 07/18/18 08:21 Labs: Short CBC 07/18/18 Range/Units 08:21 WBC 16.4 H (4.3-11.1) K/mcL Hgb 13.9 (12.9-16.9) g/dL Hct 41.0 (37.5-50.1) % Plt Count 203 (140-400) K/mcL Neutrophils # 10.5 H (1.6-8.9) K/mcL BMP 07/18/18 08:21 Sodium 135 L Potassium 4.6 Chloride 97 L Carbon Dioxide 32 H BUN 13 Creatinine 0.74 Glucose 91 Calcium 9.3 - ABG Interpretation ABG results: PT/INR, D-dimer PT 10.3 Seconds (9.4-12.1) 07/15/18 17:20 - Attending Attestation I examined this patient and my medical decision-making was reviewed with the Resident Physician. I agree with the documented findings, disposition and treatment plan as described except to the extent set forth below. No complaints, patient states he feels good to go home. Lung exam shows clear breath sounds. VS: reviewed. Stable for discharge to continue azithromycin and steroid taper. SW to assist with discharge planning. <Matthieu Benavidez - Last Filed: 07/18/18 12:43> (2) HLD (hyperlipidemia) Qualifiers: Hyperlipidemia type: unspecified Qualified Code(s): E78.5 - Hyperlipidemia, unspecified (3) Hypertension Qualifiers: Hypertension type: unspecified Qualified Code(s): I10 - Essential (primary) hypertension (7) Leukocytosis Qualifiers: Leukocytosis type: unspecified Qualified Code(s): D72.829 - Elevated white blood cell count, unspecified <Kylah Love - Last Filed: 07/18/18 17:01> (2) Hypertension Qualifiers: Hypertension type: unspecified Qualified Code(s): I10 - Essential (primary) hypertension (3) HLD (hyperlipidemia) Qualifiers: Hyperlipidemia type: unspecified Qualified Code(s): E78.5 - Hyperlipidemia, unspecified (7) Leukocytosis Qualifiers: Leukocytosis type: unspecified Qualified Code(s): D72.829 - Elevated white blood cell count, unspecified
[2018-07-18 08:52] LABS: Basophils # 0.1 K/mcL (0.0-0.2); Basophils % 0.3 %; Eosinophils # 0.1 K/mcL (0.0-0.6); Eosinophils % 0.9 %; Hemoglobin 13.9 g/dL (12.9-16.9); Immature Granulocytes % 1.8 % (0-4); Lymphocytes # 3.6 K/mcL (0.6-4.6); Mean Corpuscular HGB Conc 33.9 g/dL (31.6-35.5); Mean Corpuscular Hemoglobin 30.5 pg (28.0-33.3); Mean Corpuscular Volume 89.9 fL (83.0-100.0); Mean Platelet Volume 10.7 fL (9.4-12.4); Monocytes # 1.8 K/mcL (0.0-1.3); Monocytes % 10.8 %; Neutrophils # 10.5 K/mcL (1.6-8.9); Platelet Count 203 K/mcL (140-400); Red Blood Count 4.56 M/mcL (4.19-5.50); Segmented Neutrophils % 64.2 %
[2018-07-18] MEDS: Cholecalciferol (D-3) 1,000 UNIT TABLET PO SCH (08:59)
[2018-07-18] MEDS ORDERED: predniSONE 20 MG TABLET PO SCH (09:00)
[2018-07-18] MEDS: cloZAPine 100 MG TABLET PO SCH ×3 (09:00→20:48)
[2018-07-18] MEDS: Aspirin Enteric Coated 81 MG Tablet PO SCH (09:00)
[2018-07-18] MEDS: cefTRIAXone 1,000 MG in Water for inj. (sterile) 20 ML 10 ML IVP SCH (09:01)
[2018-07-18] MEDS: Nicotine 21 MG PATCH.TD24 TD SCH (09:02)
[2018-07-18 09:13] LABS: BUN/Creatinine Ratio 18 (6-26); Blood Urea Nitrogen 13 mg/dL (6-20); Calcium 9.3 mg/dL (8.6-10.3); Carbon Dioxide 32 mEq/L (23-29); Chloride 97 mEq/L (98-107); Glucose 91 mg/dL (70-105); Osmolality,Calculated 280 (280-300); Potassium 4.6 mEq/L (3.5-5.1); Sodium 135 mEq/L (136-145); eGFR For Non-African Americans > 60 (> 60)
[2018-07-18] MEDS: Divalproex (24 HR) 500 MG TABLET PO SCH (20:48)
[2018-07-19] MEDS: Azithromycin 500 MG in D5% in Water 250 ML IVPB SCH (01:40)
[2018-07-19] MEDS: Levalbuterol Neb 0.63 MG/3 ML IH SCH ×2 (04:33→10:54)
[2018-07-19 07:45] VITALS: BP 149/99
--- NOTE | 2018-07-19 07:48 | Electrocardiograph Report ---
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
[2018-07-19] MEDS: Aspirin Enteric Coated 81 MG Tablet PO SCH (08:24)
[2018-07-19] MEDS: cloZAPine 100 MG TABLET PO SCH (08:24)
[2018-07-19] MEDS: Nicotine 21 MG PATCH.TD24 TD SCH (08:24)
[2018-07-19] MEDS: Cholecalciferol (D-3) 1,000 UNIT TABLET PO SCH (08:24)
[2018-07-19] MEDS ORDERED: predniSONE 20 MG TABLET PO SCH (09:00)
--- NOTE | 2018-07-19 09:29 | Electrocardiograph Report ---
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
--- NOTE | 2018-07-19 10:05 | Discharge Summary ---
<Matthieu Benavidez R - Last Filed: 07/19/18 12:04> - NOTES TO OUTPATIENT PROVIDER Notes to Outpatient Provider: Follow up with PCP for COPD treatment discussion and smoking cessation Orders not resulted at time of discharge: Pending orders 07/16/18 17:18 Culture,Blood [BC] Stat Date of Encounter: 07/19/18 Time of Encounter: 08:25 - Discharge Diagnosis (1) Acute exacerbation of chronic obstructive airways disease Priority: Primary Status: Acute (2) HLD (hyperlipidemia) Priority: Secondary Status: Chronic Qualifiers: Hyperlipidemia type: unspecified Qualified Code(s): E78.5 - Hyperlipidemia, unspecified (3) Hypertension Priority: Secondary Status: Chronic Qualifiers: Hypertension type: unspecified Qualified Code(s): I10 - Essential (primary) hypertension (4) Tobacco abuse Priority: Primary Status: Chronic (5) Schizophrenia Priority: Secondary Status: Chronic Qualifiers: Schizophrenia type: unspecified Qualified Code(s): F20.9 - Schizophrenia, unspecified (6) Troponin level elevated Priority: Primary Status: Resolved (7) Leukocytosis Priority: Primary Status: Acute Qualifiers: Leukocytosis type: unspecified Qualified Code(s): D72.829 - Elevated white blood cell count, unspecified (8) DVT prophylaxis Priority: Secondary Status: Acute Hospital course: Mr. Denny is a 57 year old male with history of COPD, CAD, hypertension, schizophrenia presenting for reevaluation of worsening shortness of breath on 07/15/2018. He was recently discharged on 07/14/2018 with medications for COPD exacerbation. Per documentation patient's intermediate did not fill his medications and he did not receive them after discharge. He developed worsening shortness of breath and wheezing and presented for reevaluation. Patient was subsequently readmitted for COPD exacerbation evaluation and management on 07/15/2018. He was started on IV steroids, antibiotics with azithromycin and ceftriaxone, and DuoNeb nebs. His hospital course uncomplicated. Laboratory values and vital signs have remained stable, afebrile. Significant improvement in subjective symptoms as well as wheezing. Patient has completed course of azithromycin. He is stable and ready for discharge back to his intermediate this afternoon. Social work is working with intermediate to ensure that he obtains his medications at time of discharge. We will send prescriptions to [facility] [place] [facility] for filling prior to his discharge. Patient will be discharged with steroid taper, nebulized levo albuterol, and nebulizer. Discharge discussed with: patient, social work - Time Spent with Patient Total time spent providing and/or coordinating discharge services: - Discharge Medications Prescriptions: Levalbuterol Neb [Xopenex Neb] 0.63 mg IH Q8H PRN #24 vial.neb PRN Reason: Wheezing Nebulizer [Aeroeclipse] 1 each MC Q8H #1 each predniSONE [PredniSONE] 10 mg PO DAILY 8 Days #15 tablet Home Medications: Albuterol Sulfate [Albuterol Inhaler] 2 puff IN Q4-6H PRN 04/19/16 [History] Aspirin [Lo-Dose Aspirin EC] 81 mg PO DAILY 04/19/16 [History] Cholecalciferol (Vitamin D3) [Children's Vitamin D3] 1,000 unit PO DAILY 04/19/16 [History] Ferrous Sulfate [Iron] 325 mg PO BIDWM 04/19/16 [History] Metoprolol Tartrate [Lopressor] 50 mg PO BID 04/19/16 [History] Omeprazole [PriLOSEC] 40 mg PO DAILY 04/19/16 [History] Simvastatin [Zocor] 20 mg PO DAILY 04/19/16 [History] cloZAPine [Clozaril] 300 mg PO TID 04/19/16 [History] Divalproex (24 HR) [Depakote ER (24 HR)] 1,000 mg PO HS 07/14/18 [History] Fluvoxamine Maleate [Fluvoxamine Maleate ER] 50 mg PO DAILY 07/14/18 [History] Levalbuterol Neb [Xopenex Neb] 0.63 mg IH Q8H PRN #24 vial.neb 07/18/18 [Rx] Nebulizer [Aeroeclipse] 1 each MC Q8H #1 each 07/18/18 [Rx] predniSONE [PredniSONE] 10 mg PO DAILY 8 Days #15 tablet 07/19/18 [Rx] Allergies/Adverse Reactions: Allergy/AdvReac Type Severity Reaction Status Date / Time fluphenazine [From Prolixin] Allergy Rash Verified 01/01/16 17:09 Thiothixene Allergy Rash Verified 01/01/16 17:09 trihexyphenidyl Allergy Rash Verified 01/01/16 17:09 novamine Allergy Rash Uncoded 01/01/16 17:09 Date of admission: 07/14/18 22:55 [facility] care physician: [facility] Consults: 07/15/18 00:44 Consult to Nurse Navigator [CONS] Routine Comment: 07/15/18 12:20 Consult to Blanchard Grinder Operator [CONS] Routine Reason for SW Consult: assistance with dc planning, from intermediate, on most recent dc they did not reportedly fill rxs? and he re presented here for copd exacerbation again Discharging clinician: Matthieu Benavidez Anticipated date of discharge: 07/19/18 - Constitutional Vitals: Temp Pulse Resp BP Pulse Ox 97.9 F 107 16 149/99 99 07/19/18 07:44 07/19/18 07:44 07/19/18 07:44 07/19/18 07:44 07/19/18 07:44 General appearance: Present: A&O X 3 Exam: General: Seated upright in bed, no apparent distress HEENT: Atraumatic, moist mucous membranes, anicteric sclera Cardio: Regular rate and rhythm, no murmurs, rubs, or gallops auscultation Respiratory: Clear to auscultation bilaterally, no wheezing, rhonchi, or crackles Skin: No rashes or lesions noted Extremities: No swelling or edema Abdomen: Soft, nontender, nondistended Neuro: Alert and oriented to person, place, and situation, no focal deficits, cranial nerves intact bilaterally - Patient Status Disposition: Transfer Other Condition: Fair Functional capacity at discharge: independent ambulation Overall status at discharge: patient is progressing back to baseline - Discharge Instructions Instructions: Prednisone (By mouth), Levalbuterol (By breathing), How to Use a Nebulizer (DC), How to Use a Nebulizer (GEN) Follow Up With: [place],PCP [Primary Care Provider] - 07/21/18 10:00 am - Diet and Activity Activity: increase activity as tolerated Diet: advance to your usual diet <Kylah Love - Last Filed: 07/19/18 16:09> Orders not resulted at time of discharge: Pending orders 07/16/18 17:18 Culture,Blood [BC] Stat Date of Encounter: 07/19/18 - Discharge Diagnosis (1) Acute exacerbation of chronic obstructive airways disease Status: Acute (2) Hypertension Status: Chronic Qualifiers: Hypertension type: unspecified Qualified Code(s): I10 - Essential (primary) hypertension (3) HLD (hyperlipidemia) Status: Chronic Qualifiers: Hyperlipidemia type: unspecified Qualified Code(s): E78.5 - Hyperlipidemia, unspecified (4) Tobacco abuse Status: Chronic (5) Schizophrenia Status: Chronic Qualifiers: Schizophrenia type: unspecified Qualified Code(s): F20.9 - Schizophrenia, unspecified (6) Troponin level elevated Status: Resolved (7) Leukocytosis Status: Acute Qualifiers: Leukocytosis type: unspecified Qualified Code(s): D72.829 - Elevated white blood cell count, unspecified (8) DVT prophylaxis Status: Acute Hospital course: Mr. Denny is a 57 year old male - Time Spent with Patient Total time spent providing and/or coordinating discharge services: Date of admission: 07/14/18 22:55 Primary care physician: [facility] Consults: 07/15/18 00:44 Consult to Nurse Navigator [CONS] Routine Comment: 07/15/18 12:20 Consult to Blanchard Grinder Operator [CONS] Routine Reason for SW Consult: assistance with dc planning, from intermediate, on most recent dc they did not reportedly fill rxs? and he re presented here for copd exacerbation again - Constitutional Vitals: Temp Pulse Resp BP Pulse Ox 97.9 F 107 16 149/99 99 07/19/18 07:44 07/19/18 07:44 07/19/18 07:44 07/19/18 07:44 07/19/18 07:44 - Attending Attestation I examined this patient and my medical decision-making was reviewed with the Resident Physician. I agree with the documented findings, disposition and treatment plan as described except to the extent set forth below.
== END 2018-07-19 13:25 | disposition other institution (70) ==
LOC: 3BNU 19:31 → EMEROOARM 19:31 → SUATTDRO 22:55 → 3BNU 23:30
PROVIDERS: ADMIT Internal Medicine Nephrology; ATTEND Student in an Organized Health Care Education/Training Program

== ENCOUNTER 2018-09-15 18:49 | Observation (INO) ==
--- NOTE | 2018-09-15 19:32 | Emergency Department Note ---
Disposition Clinical Impression: Aspiration pneumonitis, SOB (shortness of breath), Hypoxemia Disposition: Admitted As Inpatient Condition: Fair [facility] Care Provider[facility] - Forms: ED Satisfaction Letter Time of Disposition: 22:17 General Adult HPI - General Chief complaint: ED Shortness of Breath/Dyspnea Stated complaint: SOB Time Seen by Provider: 09/15/18 18:58 Source: patient Limitations: no limitations Nursing Notes Reviewed: Yes Vital Signs Reviewed: Yes - History of Present Illness HPI Narrative: He presents with multiple complaints including chest pain which is intermittent, shortness of breath, abdominal pain and he lives in a correction because of a mental disability. The patient is a smoker. He denies any pain or swelling of the lower extremities. He does not have any blood in the urine or stool. No fevers. Pain Scale: 5 - Related Data Home Medications Medication Instructions Recorded Confirmed RX: Aspirin [Lo-Dose Aspirin EC] 81 mg PO DAILY 04/19/16 08/14/18 RX: Cholecalciferol (Vitamin D3) 1,000 unit PO DAILY 04/19/16 08/14/18 [Children's Vitamin D3] RX: Ferrous Sulfate [Iron] 325 mg PO BIDWM 04/19/16 08/14/18 RX: Metoprolol Tartrate [Lopressor] 50 mg PO BID 04/19/16 08/14/18 RX: Omeprazole [PriLOSEC] 40 mg PO DAILY 04/19/16 08/14/18 RX: Simvastatin [Zocor] 20 mg PO DAILY 04/19/16 08/14/18 RX: cloZAPine [Clozaril] 300 mg PO TID 04/19/16 08/14/18 RX: Divalproex (24 HR) [Depakote 1,000 mg PO HS 07/14/18 08/14/18 ER (24 HR)] RX: Fluvoxamine Maleate 50 mg PO DAILY 07/14/18 08/14/18 [Fluvoxamine Maleate ER] Ipratropium/Albuterol Sulfate 4 gm IH Q4H PRN 08/14/18 08/14/18 [Combivent Respimat Inhal [place]] Vitamin B Complex [Balanced B-50] 1 each PO DAILY 08/14/18 08/14/18 Allergies Allergy/AdvReac Type Severity Reaction Status Date / Time fluphenazine [From Prolixin] Allergy Rash Verified 01/01/16 17:09 Thiothixene Allergy Rash Verified 01/01/16 17:09 trihexyphenidyl Allergy Rash Verified 01/01/16 17:09 novamine Allergy Rash Uncoded 01/01/16 17:09 All systems ED: reviewed and negative except as stated. Past Medical History - Past Medical History Medical history: Reports: COPD, coronary artery disease, hyperlipidemia, hypertension Psychiatric history: Reports: schizophrenia - Social History Smoking Status: Current every day smoker Smokeless Tobacco Status: No Alcohol use: Reports: none Drug use: Reports: none Physical Exam CONSTITUTIONAL: Alert and oriented X3 and he does know the month and the year but he is slow to respond to some questions and his responses sometimes very when asked the same question, well-nourished, well appearing, in no apparent distress HEAD: Normocephalic; atraumatic. EYES: PERRL, no scleral icterus. NOSE: The nose is normal in appearance without rhinorrhea RESP: Normal chest excursion with respiration; breath sounds with bilateral wheezing which is minimal and symmetric CARD: Regular rhythm, without murmurs, rub or gallop ABD: Minimally distended, minimally tender throughout but the entire abdomen is soft,without rigidity, rebound or guarding SKIN: Normal for age and race; warm and dry; no apparent lesions EXTREMITIES: Pulses are 2 plus and equal times 4 extremities, no peripheral edema or calf muscle pain. - General Limitations: no limitations General appearance: alert, in no apparent distress Course Vital Signs Temperature 98.3 F 09/15/18 18:54 Pulse Rate 102 09/15/18 18:54 Respiratory Rate 20 09/15/18 18:54 Blood Pressure 133/93 09/15/18 18:54 O2 Sat by Pulse Oximetry 90 09/15/18 18:54 Temperature 98.3 F 09/15/18 18:54 Pulse Rate 98 09/15/18 20:14 Respiratory Rate 20 09/15/18 20:14 Blood Pressure 130/86 09/15/18 20:14 O2 Sat by Pulse Oximetry 96 09/15/18 20:14 Oxygen Delivery Oxygen Delivery Room Air Medical Decision Making - MDM Narrative Medical decision making narrative: Lab testing is initiated, chest x-ray, head CT, abdominal CT, he does have some blood crusting around the left ear of both tympanic membranes are normal. No localized tenderness at the posterior cervical spine. Results pending. No complaint of fever. 1943 I did review the EKG showing normal sinus rhythm with rate of 96 and the patient does have anterior T-wave inversion which is similar to previous EKG from August 14. D-dimer is elevated so CT scan will be ordered and this result is pending. 2033 I did speak with the hospitalist who accepts the patient for admission with concern for aspiration pneumonitis especially with the patient's other comorbidities. I have started on Zosyn which will give good gram-positive also gram-negative coverage. Patient is admitted to the hospital. I did see him a few minutes ago. He did present with shortness of breath and was initially hypoxemic with a saturation of 90% on room air and coupled with the CT findings this is concerning for the aspiration pneumonitis 2016 - Medical Records Medical records reviewed: Yes I reviewed the patient's medical records. - Lab Data Lab results reviewed: Yes I reviewed the patient's lab results. Result diagrams: 09/15/18 19:13 09/15/18 19:13 Lab Results 09/15/18 09/15/18 09/15/18 Range/Units 19:13 19:13 19:13 WBC 10.5 (4.3-11.1) K/mcL RBC 4.40 (4.19-5.50) M/mcL Hgb 13.8 (12.9-16.9) g/dL Hct 41.8 (37.5-50.1) % MCV 95.0 (83.0-100.0) fL MCH 31.4 (28.0-33.3) pg MCHC 33.0 (31.6-35.5) g/dL RDW 15.9 H (11.5-14.5) % Plt Count 163 (140-400) K/mcL MPV 10.8 (9.4-12.4) fL Immature Gran % 0.4 (0-4) % Seg Neutrophils % 58.6 % Lymphocytes % 24.8 % Monocytes % 12.5 % Eosinophils % 3.2 % Basophils % 0.5 % Neutrophils # 6.2 (1.6-8.9) K/mcL Lymphocytes # 2.6 (0.6-4.6) K/mcL Monocytes # 1.3 (0.0-1.3) K/mcL Eosinophils # 0.3 (0.0-0.6) K/mcL Basophils # 0.1 (0.0-0.2) K/mcL Reactive Lymphocytes Present A (Not Present) Platelet Estimate Normal (Normal) D-Dimer (0-500) ng/mLFEU Sodium 139 (136-145) mEq/L Potassium 3.6 (3.5-5.1) mEq/L Chloride 102 (98-107) mEq/L Carbon Dioxide 33 H (23-29) mEq/L BUN 14 (6-20) mg/dL Creatinine 0.75 (0.70-1.30) mg/dL Est GFR ( Amer) > 60 (> 60) Est GFR (Non-Af Amer) > 60 (> 60) BUN/Creatinine Ratio 19 (6-26) Glucose 97 (70-105) mg/dL Calculated Osmolality 288 (280-300) Lactic Acid 1.0 (0.5-2.2) mmol/L Calcium 9.3 (8.6-10.3) mg/dL Troponin I < 0.03 (< 0.04) ng/mL B-Natriuretic Peptide (Less than 100) pg/mL 09/15/18 09/15/18 Range/Units 19:13 19:13 WBC (4.3-11.1) K/mcL RBC (4.19-5.50) M/mcL Hgb (12.9-16.9) g/dL Hct (37.5-50.1) % MCV (83.0-100.0) fL MCH (28.0-33.3) pg MCHC (31.6-35.5) g/dL RDW (11.5-14.5) % Plt Count (140-400) K/mcL MPV (9.4-12.4) fL Immature Gran % (0-4) % Seg Neutrophils % % Lymphocytes % % Monocytes % % Eosinophils % % Basophils % % Neutrophils # (1.6-8.9) K/mcL Lymphocytes # (0.6-4.6) K/mcL Monocytes # (0.0-1.3) K/mcL Eosinophils # (0.0-0.6) K/mcL Basophils # (0.0-0.2) K/mcL Reactive Lymphocytes (Not Present) Platelet Estimate (Normal) D-Dimer 686 H (0-500) ng/mLFEU Sodium (136-145) mEq/L Potassium (3.5-5.1) mEq/L Chloride (98-107) mEq/L Carbon Dioxide (23-29) mEq/L BUN (6-20) mg/dL Creatinine (0.70-1.30) mg/dL Est GFR ( Amer) (> 60) Est GFR (Non-Af Amer) (> 60) BUN/Creatinine Ratio (6-26) Glucose (70-105) mg/dL Calculated Osmolality (280-300) Lactic Acid (0.5-2.2) mmol/L Calcium (8.6-10.3) mg/dL Troponin I (< 0.04) ng/mL B-Natriuretic Peptide 59 (Less than 100) pg/mL - Radiology Data Radiology results reviewed: Yes I reviewed the patient's radiology results.
[2018-09-15 19:34] LABS: Basophils # 0.1 K/mcL (0.0-0.2); Basophils % 0.5 %; Eosinophils # 0.3 K/mcL (0.0-0.6); Eosinophils % 3.2 %; Hematocrit 41.8 % (37.5-50.1); Hemoglobin 13.8 g/dL (12.9-16.9); Immature Granulocytes % 0.4 % (0-4); Lymphocytes # 2.6 K/mcL (0.6-4.6); Lymphocytes % 24.8 %; Mean Corpuscular Hemoglobin 31.4 pg (28.0-33.3); Mean Platelet Volume 10.8 fL (9.4-12.4); Monocytes # 1.3 K/mcL (0.0-1.3); Monocytes % 12.5 %; Platelet Count 163 K/mcL (140-400); Red Cell Distribution Width 15.9 % (11.5-14.5); Segmented Neutrophils % 58.6 %
[2018-09-15 19:39] LABS: Neutrophils # 6.2 K/mcL (1.6-8.9)
[2018-09-15 19:47] LABS: BUN/Creatinine Ratio 19 (6-26); Blood Urea Nitrogen 14 mg/dL (6-20); Calcium 9.3 mg/dL (8.6-10.3); Carbon Dioxide 33 mEq/L (23-29); Chloride 102 mEq/L (98-107); Glucose 97 mg/dL (70-105); Osmolality,Calculated 288 (280-300); Potassium 3.6 mEq/L (3.5-5.1); Sodium 139 mEq/L (136-145); Troponin I < 0.03 ng/mL (< 0.04); eGFR For Non-African Americans > 60 (> 60)
[2018-09-15 19:49] LABS: Platelet Estimate Normal (Normal)
[2018-09-15 19:50] LABS: Reactive Lymphocytes Present (Not Present)
[2018-09-15] MEDS ORDERED: Isovue-370 500 ML BOTTLE IVP ONE (20:32)
[2018-09-15] MEDS ORDERED: Piperacillin/Tazobactam 3.375 GM in D5% in Water (Mini-Bag+) 100 ML IVPB ONE (22:04)
[2018-09-15] MEDS ORDERED: Piperacillin/Tazobactam 3.375 GM in 0.9 % Sodium Chloride Mini Bag 100 ML IVPB ONE (22:10)
[2018-09-15] MEDS ORDERED: Ipratropium/Albuterol Neb 3 ML IH PRN (23:35)
[2018-09-16] MEDS: Divalproex (24 HR) 500 MG TABLET PO SCH ×2 (01:34→20:34)
--- NOTE | 2018-09-16 01:56 | Internal Med History&Physical ---
Date of Encounter: 09/15/18 Time of Encounter: 23:55 Internal Medicine - H&P: HPI Chief complaint: SOB Admitted From: Home Plans for Post Hospital Care: Home History of present illness: Roman Denny is a 57 year old man with coronary artery disease, hypertension and COPD who remains an active smoker as well as a history of schizophrenia and it is unclear if there is a developmental disorder, currently living in a senior living. He is brought into emergency room with complaints of shortness of breath and intermittent chest pain. No cough, fever or chills reported. He was hemodynamically stable on arrival and lab work was grossly unrevealing except a mildly elevated d-dimer. It was also reported that he was mildly hypoxic saturating 90% on room air on the way to the ER so CTA was done which ruled out pulmonary embolism however due to the radiologist reports of some mucous plugging and concern for aspiration pneumonitis he was given a dose of piperacillin tazobactam and admitted. On my review of his CAT scan, his lung parenchyma is clear without any infiltrates. At this time he reports feeling well and has no complaints. Past Med Surg Social Fam HX - Past Medical History Medical history: COPD, coronary artery disease, hyperlipidemia, hypertension Additional medical history: orthostatic hypotension, congenital metatrsus varus, ishemic cardiomyopathy Psychiatric history: schizophrenia - Social History Smoking Status: Current every day smoker Smokeless Tobacco Status: No Alcohol use: none Drug use: none - Family History Mother Hx Family Cardiac Disorders: Yes Father Hx Family Cardiac Disorders: Yes Internal Medicine - H&P: Meds Aspirin [Lo-Dose Aspirin EC] 81 mg PO DAILY 04/19/16 [History] Cholecalciferol (Vitamin D3) [Children's Vitamin D3] 1,000 unit PO DAILY 04/19/16 [History] Ferrous Sulfate [Iron] 325 mg PO BIDWM 04/19/16 [History] Metoprolol Tartrate [Lopressor] 50 mg PO BID 04/19/16 [History] Omeprazole [PriLOSEC] 40 mg PO DAILY 04/19/16 [History] Simvastatin [Zocor] 20 mg PO DAILY 04/19/16 [History] cloZAPine [Clozaril] 300 mg PO TID 04/19/16 [History] Divalproex (24 HR) [Depakote ER (24 HR)] 1,000 mg PO HS 07/14/18 [History] Fluvoxamine Maleate [Fluvoxamine Maleate ER] 50 mg PO DAILY 07/14/18 [History] Ipratropium/Albuterol Sulfate [Combivent Respimat Inhal Vina] 4 gm IH Q4H PRN 08/14/18 [History] Vitamin B Complex [Balanced B-50] 1 each PO DAILY 08/14/18 [History] Allergy/AdvReac Type Severity Reaction Status Date / Time fluphenazine [From Prolixin] Allergy Rash Verified 01/01/16 17:09 Thiothixene Allergy Rash Verified 01/01/16 17:09 trihexyphenidyl Allergy Rash Verified 01/01/16 17:09 novamine Allergy Rash Uncoded 01/01/16 17:09 All Systems PM: A 10-system review of systems was performed and is negative for pertinent findings except as documented above in the HPI. - Constitutional Vitals: Temp Pulse Resp BP Pulse Ox 97.8 F 115 18 143/96 94 09/15/18 23:48 09/15/18 23:48 09/15/18 23:48 09/15/18 23:48 09/15/18 23:48 Exam: Vitals: Reviewed General: Well-developed -Mosotho male lying comfortably in bed in no acute distress. Skin: Warm and supple. HEENT: Moist mucous membranes. No conjunctivae pallor. Neck: No lymphadenopathy. No JVD. No carotid bruits. No palpable thyroid. Chest: Normal thoracic expansion. Normal breath sounds. Clear to auscultation. Heart: Normal S1 & S2; rhythmic. No rubs or murmurs. Abdomen: Non-distended, soft and non-tender to palpation. No peritoneal reaction. Extremities: No clubbing, cyanosis or edema. No calf tenderness. Normal distal pulses. Neurological: Awake, alert and oriented to person, place and time. No focal deficits. Psych: Affect appropriate. Internal Med - H&P Results - Labs CBC & Chem 7: 09/15/18 19:13 09/15/18 19:13 Labs: Short CBC 09/15/18 Range/Units 19:13 WBC 10.5 (4.3-11.1) K/mcL Hgb 13.8 (12.9-16.9) g/dL Hct 41.8 (37.5-50.1) % Plt Count 163 (140-400) K/mcL Neutrophils # 6.2 (1.6-8.9) K/mcL BMP 09/15/18 19:13 Sodium 139 Potassium 3.6 Chloride 102 Carbon Dioxide 33 H BUN 14 Creatinine 0.75 Glucose 97 Calcium 9.3 Cardiac Enzymes 09/15/18 Range/Units 19:13 Troponin I < 0.03 (< 0.04) ng/mL - Impressions ITS Impressions Chest X-Ray 09/15/18 19:21 IMPRESSION: No acute findings. D/ / Milan Guallpa MD / Milan Guallpa MD Interpreting Provider: Milan Guallpa MD Head CT 09/15/18 19:23 IMPRESSION: No acute intracranial abnormality. D/ / 09/15/2018 19:52:34 Mojgan Newby MD / [place] Interpreting Provider: Mojgan Newby MD Abdomen/Pelvis CT 09/15/18 19:44 IMPRESSION: 1. Moderate small bowel distension with transition distally. Evaluation is somewhat limited by the lack of enteric contrast and intravenous contrast. Thickening of the terminal ileum wall suggesting underlying inflammatory bowel disease. Close follow-up evaluation recommended. 2. Small amount of free pelvic fluid. D/ / 09/15/2018 20:19:33 Nico Lai MD / radha Interpreting Provider: Nico Lai MD Chest CTA 09/15/18 20:32 IMPRESSION: No evidence of pulmonary embolism or aortic dissection. Diffuse prominent bronchial wall thickening, with debris within the airways, which may represent mucous plugging, but aspiration is also considered. Mild tree-in-bud centrilobular micronodular opacities, which are most compatible with bronchiolitis, especially given the large airways disease. D/ / Sandoval Paez MD / Sandoval Paez MD Interpreting Provider: Sandoval Paez MD - Assessment and Plan (1) SOB (shortness of breath) Current Visit: Yes Status: Acute Assessment and plan: Will screen for influenza given his associated report of sore throat and URI symptoms as well as his risk factor of living in a senior living. So far his clinical exam is benign and he is asymptomatic. No signs of COPD exacerbation, pneumonia or heart failure. He is saturating in the high 90s on room air. Will provide nebulizer therapy as needed if he becomes symptomatic. If he remains stable by morning, he can be discharged back. (2) Chest pain Current Visit: Yes Status: Acute Assessment and plan: Seems to be intermittent and he reports that it is more associated with his coughing episodes than anything else. Troponin level is negative and his EKG is at baseline showing right bundle branch block as well as a left anterior fascicular block. We will obtain another level in a few hours given his prior history of CAD however there is low likelihood of active ACS. Qualifiers: Chest pain type: unspecified Qualified Code(s): R07.9 - Chest pain, unspecified (3) HLD (hyperlipidemia) Current Visit: Yes Status: Chronic Assessment and plan: Continue statin therapy. Qualifiers: Hyperlipidemia type: unspecified Qualified Code(s): E78.5 - Hyperlipidemia, unspecified (4) Hypertension Current Visit: Yes Status: Chronic Assessment and plan: We will resume home oral antihypertensives once confirmed. Qualifiers: Hypertension type: essential hypertension Qualified Code(s): I10 - Essential (primary) hypertension (5) Schizophrenia Current Visit: Yes Status: Chronic Assessment and plan: List of medications from his senior living has been confirmed and they will be resumed accordingly. Qualifiers: Schizophrenia type: unspecified Qualified Code(s): F20.9 - Schizophrenia, unspecified (6) Tobacco abuse Current Visit: Yes Status: Chronic Assessment and plan: 5 minutes were spent counseling and educating the patient on this habit. family services assistant and resources were made available. (7) DVT prophylaxis Current Visit: Yes Status: Acute Assessment and plan: SubQ heparin ordered. - Time Spent With Patient Total time spent is greater than 50% in coordination of care (as documented) at patient's floor/unit and/or counseling patient: Greater than 35 minutes
[2018-09-16] MEDS: *HR* Heparin 5,000 UNIT/ML VIAL SQ SCH ×2 (05:53→17:23)
[2018-09-16] MEDS: cloZAPine 100 MG TABLET PO SCH ×3 (08:04→20:34)
[2018-09-16] MEDS: Aspirin Enteric Coated 81 MG Tablet PO SCH (08:04)
[2018-09-16] MEDS: Vitamin B Complex/Vit C/Vit E 1 EACH TABLET PO SCH (08:05)
[2018-09-16] MEDS: Cholecalciferol (D-3) 1,000 UNIT TABLET PO SCH (08:05)
--- NOTE | 2018-09-16 10:42 | Internal Med Progress Note ---
<Danis Rodas - Last Filed: 09/16/18 10:38> Hospitalist Progress Note - Encounter Date of Encounter: 09/16/18 Time of Encounter: 10:39 - Subjective Interval History: Patient reports his shortness of breath has improved but not back to baseline. He denies any chest pain, abdominal pain, lower extremity edema. He is armin erating his diet and is ambulating independently. He is not requiring oxygen supplementation. - Exam Vitals: Temp Pulse Resp BP Pulse Ox 98 F 105 18 108/68 93 09/16/18 06:41 09/16/18 06:41 09/16/18 06:41 09/16/18 06:41 09/16/18 06:41 Exam: General: pleasant, without distress Cardiovascualr: Regular rate and rhythm with no murmur, absent gallops or rubs, absent pedal edema, radial pulses 2 out of 4 Lungs: Clear to auscultation bilaterally, not in respiratory distress Abdomen: Soft nontender, nondistended positive bowel sounds, absent hepatomegaly Skin: warm and dry, absent rash, absent open wounds and nodules MSK: absent clubbing, cyanosis, joints without swelling Neuro: Alert oriented 3 Psych: good insight and judgment - Assessment and Plan (1) Aspiration pneumonitis Current Visit: Yes Status: Suspected Assessment and Plan: Patient reports she woke up with sudden onset of shortness of breath lasted a few hours CTA showed diffuse prominent bronchial wall thickening with debris within the airways which may represent mucous plugging as well as aspiration Mild tree-in-bud centrilobular micronodules opacities compatible with bronchiolitis Currently he is not oxygen dependent and saturating greater than 90% on room air We will continue duo nebs as needed. We will get speech evaluation for aspiration (2) Chest pain Current Visit: Yes Status: Resolved Assessment and Plan: Patient's chest pain has resolved Troponins are negative 2 EKG does not show ST elevations or depressions or T-wave changes Last echocardiogram on 07/12/2018 showed sinus tachycardia with bundle branch block, LV systolic function grossly normal. Patient cardiac catheterization on June 2018 which showed coronary arteries were angiographically normal. (3) HLD (hyperlipidemia) Current Visit: Yes Status: Chronic Assessment and Plan: Stable Continue simvastatin (4) Hypertension Current Visit: Yes Status: Chronic Assessment and Plan: Stable (5) Schizophrenia Current Visit: Yes Status: Chronic Assessment and Plan: Stable Continue clozapine and Depakote (6) Tobacco abuse Current Visit: Yes Status: Chronic Assessment and Plan: Patient educated on smoking cessation. (7) Abnormal computed tomography of abdomen and pelvis Current Visit: Yes Status: Acute Assessment and Plan: Patient's CT abdomen pelvis shows moderate small bowel distention with transition distally and thickening of the terminal ileum suggesting underlying inflammatory bowel disease Patient will need a follow-up with GI on discharge. - Time Spent with Patient Total time spent is greater than 50% in coordination of care (as documented) at patient's floor/unit and/or counseling patient: Internal Medicine: Result - Labs CBC & Chem 7: 09/15/18 19:13 09/15/18 19:13 Labs: Short CBC 09/15/18 Range/Units 19:13 WBC 10.5 (4.3-11.1) K/mcL Hgb 13.8 (12.9-16.9) g/dL Hct 41.8 (37.5-50.1) % Plt Count 163 (140-400) K/mcL Neutrophils # 6.2 (1.6-8.9) K/mcL BMP 09/15/18 19:13 Sodium 139 Potassium 3.6 Chloride 102 Carbon Dioxide 33 H BUN 14 Creatinine 0.75 Glucose 97 Calcium 9.3 Cardiac Enzymes 09/15/18 09/16/18 Range/Units 19:13 05:35 Troponin I < 0.03 < 0.03 (< 0.04) ng/mL - ABG Interpretation ABG results: PT/INR, D-dimer D-Dimer 686 ng/mLFEU (0-500) H 09/15/18 19:13 - Impressions Impressions Chest X-Ray 09/15/18 19:21 IMPRESSION: No acute findings. D/ / Milan Guallpa MD / Milan Guallpa MD Interpreting Provider: Milan Guallpa MD Head CT 09/15/18 19:23 IMPRESSION: No acute intracranial abnormality. D/ / 09/15/2018 19:52:34 Mojgan Newby MD / [place] Interpreting Provider: Mojgan Newby MD Abdomen/Pelvis CT 09/15/18 19:44 IMPRESSION: 1. Moderate small bowel distension with transition distally. Evaluation is somewhat limited by the lack of enteric contrast and intravenous contrast. Thickening of the terminal ileum wall suggesting underlying inflammatory bowel disease. Close follow-up evaluation recommended. 2. Small amount of free pelvic fluid. D/ / 09/15/2018 20:19:33 Nico Lai MD / radha Interpreting Provider: Nico Lai MD Chest CTA 09/15/18 20:32 IMPRESSION: No evidence of pulmonary embolism or aortic dissection. Diffuse prominent bronchial wall thickening, with debris within the airways, which may represent mucous plugging, but aspiration is also considered. Mild tree-in-bud centrilobular micronodular opacities, which are most compatible with bronchiolitis, especially given the large airways disease. D/ / Sandoval Paez MD / Sandoval Paez MD Interpreting Provider: Sandoval Paez MD Consult Discharge Plan - Plan [facility]errals: [facility] [Primary Care Provider[facility] - <Kylah Love - Last Filed: 09/16/18 18:17> Hospitalist Progress Note - Encounter Date of Encounter: 09/16/18 - Exam Vitals: Temp Pulse Resp BP Pulse Ox 98.5 F 101 16 114/77 90 09/16/18 14:24 09/16/18 14:24 09/16/18 14:24 09/16/18 14:24 09/16/18 14:24 - Assessment and Plan (1) Chest pain Current Visit: Yes Status: Resolved (2) Hypertension Current Visit: Yes Status: Chronic (3) HLD (hyperlipidemia) Current Visit: Yes Status: Chronic (4) Tobacco abuse Current Visit: Yes Status: Chronic (5) Schizophrenia Current Visit: Yes Status: Chronic (6) DVT prophylaxis Current Visit: Yes Status: Acute (7) SOB (shortness of breath) Current Visit: Yes Status: Acute - Time Spent with Patient Total time spent is greater than 50% in coordination of care (as documented) at patient's floor/unit and/or counseling patient: Internal Medicine: Result - Labs CBC & Chem 7: 09/15/18 19:13 09/15/18 19:13 Labs: Short CBC 09/15/18 Range/Units 19:13 WBC 10.5 (4.3-11.1) K/mcL Hgb 13.8 (12.9-16.9) g/dL Hct 41.8 (37.5-50.1) % Plt Count 163 (140-400) K/mcL Neutrophils # 6.2 (1.6-8.9) K/mcL BMP 09/15/18 19:13 Sodium 139 Potassium 3.6 Chloride 102 Carbon Dioxide 33 H BUN 14 Creatinine 0.75 Glucose 97 Calcium 9.3 Cardiac Enzymes 09/15/18 09/16/18 Range/Units 19:13 05:35 Troponin I < 0.03 < 0.03 (< 0.04) ng/mL - ABG Interpretation ABG results: PT/INR, D-dimer D-Dimer 686 ng/mLFEU (0-500) H 09/15/18 19:13 - Impressions Impressions Chest X-Ray 09/15/18 19:21 IMPRESSION: No acute findings. D/ / Milan Guallpa MD / Milan Guallpa MD Interpreting Provider: Milan Guallpa MD Head CT 09/15/18 19:23 IMPRESSION: No acute intracranial abnormality. D/ / 09/15/2018 19:52:34 Mojgan Newby MD / [facility] Interpreting Provider: Mojgan Newby MD Abdomen/Pelvis CT 09/15/18 19:44 IMPRESSION: 1. Moderate small bowel distension with transition distally. Evaluation is somewhat limited by the lack of enteric contrast and intravenous contrast. Thickening of the terminal ileum wall suggesting underlying inflammatory bowel disease. Close follow-up evaluation recommended. 2. Small amount of free pelvic fluid. D/ / 09/15/2018 20:19:33 Nico Lai MD / radha Interpreting Provider: Nico Lai MD Chest CTA 09/15/18 20:32 IMPRESSION: No evidence of pulmonary embolism or aortic dissection. Diffuse prominent bronchial wall thickening, with debris within the airways, which may represent mucous plugging, but aspiration is also considered. Mild tree-in-bud centrilobular micronodular opacities, which are most compatible with bronchiolitis, especially given the large airways disease. D/ / Sandoval Paez MD / Sandoval Paez MD Interpreting Provider: Sandoval Paez MD - Attending Attestation I examined this patient and my medical decision-making was reviewed with the Resident Physician. I agree with the documented findings, disposition and treatment plan as described except to the extent set forth below. <Danis Rodas - Last Filed: 09/16/18 10:38> (2) Chest pain Qualifiers: Chest pain type: unspecified (3) HLD (hyperlipidemia) Qualifiers: Hyperlipidemia type: unspecified Qualified Code(s): E78.5 - Hyperlipidemia, unspecified (4) Hypertension Qualifiers: Hypertension type: essential hypertension Qualified Code(s): I10 - Essential (primary) hypertension (5) Schizophrenia Qualifiers: Schizophrenia type: unspecified Qualified Code(s): F20.9 - Schizophrenia, unspecified <Kylah Love - Last Filed: 09/16/18 18:17> (1) Chest pain Qualifiers: Chest pain type: unspecified (2) Hypertension Qualifiers: Hypertension type: essential hypertension Qualified Code(s): I10 - Essential (primary) hypertension (3) HLD (hyperlipidemia) Qualifiers: Hyperlipidemia type: unspecified Qualified Code(s): E78.5 - Hyperlipidemia, unspecified (5) Schizophrenia Qualifiers: Schizophrenia type: unspecified Qualified Code(s): F20.9 - Schizophrenia, unspecified
[2018-09-17] MEDS: *HR* Heparin 5,000 UNIT/ML VIAL SQ SCH (05:00)
[2018-09-17] MEDS: Vitamin B Complex/Vit C/Vit E 1 EACH TABLET PO SCH (07:35)
[2018-09-17] MEDS: Cholecalciferol (D-3) 1,000 UNIT TABLET PO SCH (07:35)
[2018-09-17] MEDS: cloZAPine 100 MG TABLET PO SCH (07:35)
[2018-09-17] MEDS: Aspirin Enteric Coated 81 MG Tablet PO SCH (07:35)
--- NOTE | 2018-09-17 10:04 | Discharge Summary ---
<Danis Rodas - Last Filed: 09/17/18 10:02> - NOTES TO OUTPATIENT PROVIDER Notes to Outpatient Provider: Patient admitted for possible aspiration pneumonitis. He will need a repeat chest x-ray in 2 weeks. He will also need to follow-up with GI for abnormal CT abdomen pelvis that showed thickening of the terminal ileum suggesting underlying inflammatory bowel disease. Orders not resulted at time of discharge: Pending orders 09/15/18 19:21 ECG 12 lead ECG [ECG] Stat Date of Encounter: 09/17/18 Time of Encounter: 10:02 - Discharge Diagnosis (1) Aspiration pneumonitis Priority: Primary Status: Suspected (2) Chest pain Priority: Secondary Status: Resolved Qualifiers: Chest pain type: unspecified Qualified Code(s): R07.9 - Chest pain, unspecified (3) HLD (hyperlipidemia) Priority: Secondary Status: Chronic Qualifiers: Hyperlipidemia type: unspecified Qualified Code(s): E78.5 - Hyperlipidemia, unspecified (4) Hypertension Priority: Secondary Status: Chronic Qualifiers: Hypertension type: essential hypertension Qualified Code(s): I10 - Essential (primary) hypertension (5) Schizophrenia Priority: Secondary Status: Chronic Qualifiers: Schizophrenia type: unspecified Qualified Code(s): F20.9 - Schizophrenia, unspecified (6) Tobacco abuse Priority: Secondary Status: Chronic (7) Abnormal computed tomography of abdomen and pelvis Priority: Secondary Status: Acute Hospital course: Mr. Denny is a 57 year old male admitted for acute onset of shortness of breath that woke him up from sleeping in the morning. Along with this he had intermittent chest pain. On presentation his d-dimer is elevated. He underwent CTA of the chest that showed diffuse prominent bronchial wall thickening with debris in the airways which represent mucous plugging and mild tree-in-bud centrilobular micronodular opacities which are most compatible with bronchioliti s. Patient's labs were within normal limits and he did not have signs of sepsis. EKG was within normal limits and troponins were negative 2 On admission patient did not require oxygen supplementation. There were no signs of pneumonia. Overnight patient received her status remained stable. This morning he ate breakfast without any problems and is ambulating independently and denies shortness of breath. His lung exam is clear. There was a concern for aspiration pneumonitis and patient should have a outpatient speech therapy evaluation set up by his primary care physician. Furthermore he had a CT head that was negative. CT abdomen pelvis that showed thickening of the terminal ileum suggesting of inflammatory bowel disease and should follow-up with GI. Patient was educated on tobacco cessation. Discharge discussed with: patient - Time Spent with Patient Total time spent providing and/or coordinating discharge services: - Discharge Medications Prescriptions: Continue RX: Metoprolol Tartrate [Lopressor] 50 mg PO BID RX: Ferrous Sulfate [Iron] 325 mg PO BIDWM RX: cloZAPine [Clozaril] 300 mg PO TID RX: Aspirin [Lo-Dose Aspirin EC] 81 mg PO DAILY RX: Simvastatin [Zocor] 20 mg PO DAILY RX: Omeprazole [PriLOSEC] 40 mg PO DAILY RX: Cholecalciferol (Vitamin D3) [Children's Vitamin D3] 1,000 unit PO DAILY RX: Divalproex (24 HR) [Depakote ER (24 HR)] 1,000 mg PO HS RX: Fluvoxamine Maleate [Fluvoxamine Maleate ER] 50 mg PO DAILY RX: Ipratropium/Albuterol Sulfate [Combivent Respimat 20-100 Mcg] 4 gm IH Q4H PRN PRN Reason: Shortness Of Breath RX: Vitamin B Complex [Balanced B-50] 1 each PO DAILY Home Medications: RX: Aspirin [Lo-Dose Aspirin EC] 81 mg PO DAILY 04/19/16 [History] RX: Cholecalciferol (Vitamin D3) [Children's Vitamin D3] 1,000 unit PO DAILY 04/19/16 [History] RX: Ferrous Sulfate [Iron] 325 mg PO BIDWM 04/19/16 [History] RX: Metoprolol Tartrate [Lopressor] 50 mg PO BID 04/19/16 [History] RX: Omeprazole [PriLOSEC] 40 mg PO DAILY 04/19/16 [History] RX: Simvastatin [Zocor] 20 mg PO DAILY 04/19/16 [History] RX: cloZAPine [Clozaril] 300 mg PO TID 04/19/16 [History] RX: Divalproex (24 HR) [Depakote ER (24 HR)] 1,000 mg PO HS 07/14/18 [History] RX: Fluvoxamine Maleate [Fluvoxamine Maleate ER] 50 mg PO DAILY 07/14/18 [History] RX: Ipratropium/Albuterol Sulfate [Combivent Respimat 20-100 Mcg] 4 gm IH Q4H PRN 08/14/18 [History] RX: Vitamin B Complex [Balanced B-50] 1 each PO DAILY 08/14/18 [History] Allergies/Adverse Reactions: Allergy/AdvReac Type Severity Reaction Status Date / Time fluphenazine [From Prolixin] Allergy Rash Verified 01/01/16 17:09 Thiothixene Allergy Rash Verified 01/01/16 17:09 trihexyphenidyl Allergy Rash Verified 01/01/16 17:09 novamine Allergy Rash Uncoded 01/01/16 17:09 Date of admission: 09/15/18 23:09 [facility] care physician: [facility] Consults: 09/16/18 10:38 Consult to Speech Therapy [CONS] Routine Comment: Evaluate, develop and implement POC Reason for Consult: aspiriation Call Completed: No Discharging clinician: Danis Rodas Anticipated date of discharge: 09/17/18 - Constitutional Vitals: Temp Pulse Resp BP Pulse Ox 98.0 F 92 14 136/85 94 09/17/18 07:04 09/17/18 07:04 09/17/18 07:04 09/17/18 07:04 09/17/18 07:04 Exam: General: pleasant, without distress Cardiovascualr: Regular rate and rhythm with no murmur, absent gallops or rubs, absent pedal edema, radial pulses 2 out of 4 Lungs: Clear to auscultation bilaterally, not in respiratory distress Abdomen: Soft nontender, nondistended positive bowel sounds, absent hepatomegaly Skin: warm and dry, absent rash, absent open wounds and nodules MSK: absent clubbing, cyanosis, joints without swelling Neuro: Alert oriented 3, no focal deficit Psych: good insight and judgment - Patient Status Disposition: Home, Self-Care Condition: Fair Functional capacity at discharge: independent ambulation Overall status at discharge: patient is progressing back to baseline - Discharge Instructions Instructions: Chest Pain (DC), Schizophrenia (DC), Chronic Hypertension (DC), Hyperlipidemia (DC), Hypoxemia (DC) Follow [facility] With: [facility] [Primary Care Provider] - - Diet and Activity Activity: increase activity as tolerated Diet: low fat, low cholesterol, low salt diet <Kylah Love - Last Filed: 09/17/18 16:12> Orders not resulted at time of discharge: Pending orders 09/15/18 19:21 ECG 12 lead ECG [ECG] Stat Date of Encounter: 09/17/18 - Discharge Diagnosis (1) Chest pain Status: Resolved Qualifiers: Chest pain type: unspecified Qualified Code(s): R07.9 - Chest pain, unsp ecified (2) Hypertension Status: Chronic Qualifiers: Hypertension type: essential hypertension Qualified Code(s): I10 - Essential (primary) hypertension (3) HLD (hyperlipidemia) Status: Chronic Qualifiers: Hyperlipidemia type: unspecified Qualified Code(s): E78.5 - Hyperlipidemia, unspecified (4) Tobacco abuse Status: Chronic (5) Schizophrenia Status: Chronic Qualifiers: Schizophrenia type: unspecified Qualified Code(s): F20.9 - Schizophrenia, unspecified (6) DVT prophylaxis Status: Acute (7) SOB (shortness of breath) Status: Acute Hospital course: Mr. Denny is a 57 year old male - Time Spent with Patient Total time spent providing and/or coordinating discharge services: Date of admission: 09/15/18 23:09 Primary care physician: [facility] Consults: 09/16/18 10:38 Consult to Speech Therapy [CONS] Routine Comment: Evaluate, develop and implement POC Reason for Consult: aspiriation Call Completed: No - Constitutional Vitals: Temp Pulse Resp BP Pulse Ox 97.9 F 96 15 116/72 100 09/17/18 11:44 09/17/18 11:44 09/17/18 11:44 09/17/18 11:44 09/17/18 11:44 - Attending Attestation I examined this patient and my medical decision-making was reviewed with the Resident Physician. I agree with the documented findings, disposition and treatment plan as described except to the extent set forth below.
[2018-09-17 11:46] VITALS: BP 116/72
--- NOTE | 2018-09-19 16:42 | Electrocardiograph Report ---
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
== END 2018-09-17 12:18 | disposition home or self-care (01) ==
LOC: 3ANU 18:49 → EMEROOARM 18:49 → SUATTDRO 23:09 → 3ANU 23:28
PROVIDERS: ADMIT Internal Medicine; ATTEND Student in an Organized Health Care Education/Training Program

== ENCOUNTER 2020-12-30 14:56 | Inpatient (IN) ==
[2020-12-30] MEDS ORDERED: Ziprasidone 10 MG, Closed System Device IM Kit 1 EACH in Water for inj. (sterile) 0.5 ML IM ONE (15:04)
[2020-12-30 15:27] LABS: Basophils % 0.4 %; Eosinophils # 0.1 K/mcL (0.0-0.6); Eosinophils % 0.7 %; Hematocrit 38.8 % (37.5-50.1); Hemoglobin 13.3 g/dL (12.9-16.9); Immature Granulocytes % 0.2 % (0-4); Lymphocytes # 2.2 K/mcL (0.6-4.6); Lymphocytes % 21.4 %; Mean Corpuscular HGB Conc 34.3 g/dL (31.6-35.5); Mean Corpuscular Hemoglobin 30.4 pg (28.0-33.3); Mean Corpuscular Volume 88.6 fL (83.0-100.0); Mean Platelet Volume 10.8 fL (9.4-12.4); Monocytes # 1.5 K/mcL (0.0-1.3); Monocytes % 15.3 %; Neutrophils # 6.2 K/mcL (1.6-8.9); Platelet Count 206 K/mcL (140-400); Red Blood Count 4.38 M/mcL (4.19-5.50); Red Cell Distribution Width 16.7 % (11.5-14.5)
[2020-12-30] MEDS ORDERED: *HR* LORazepam 2 MG/ML VIAL IM STA (15:32)
[2020-12-30] MEDS ORDERED: Water for inj. (sterile) 10 ML ONE (15:44)
[2020-12-30 15:57] LABS: Troponin I 0.03 ng/mL (< 0.04)
[2020-12-30 16:01] LABS: Acetaminophen < 10 mcg/mL (10-20); Alanine Aminotransferase 23 Units/L (7-52); Albumin 4.3 g/dL (3.5-5.7); Albumin/Globulin Ratio 1.9 (1.1-2.2); Alkaline Phosphatase 67 Units/L (34-104); Aspartate Amino Transferase 55 Units/L (13-39); BUN/Creatinine Ratio 13 (6-26); Bilirubin,Direct 0.2 mg/dL (0.0-0.2); Bilirubin,Indirect 0.4 mg/dL (0.0-1.0); Bilirubin,Total 0.6 mg/dL (0.3-1.0); Blood Urea Nitrogen 12 mg/dL (8-23); Calcium 9.6 mg/dL (8.6-10.3); Carbon Dioxide 25 mEq/L (23-29); Chloride 103 mEq/L (98-107); Creatine Kinase 1335 Units/L (30-223); Ethanol < 10 mg/dL (Less than 10); Globulin 2.3 g/dL (2.4-3.5); Glucose 102 mg/dL (70-105); Lipase 14 Units/L (11-82); Osmolality,Calculated 286 (280-300); Potassium 3.7 mEq/L (3.5-5.1); Salicylate < 2.5 mg/dL (15.0-30.0); Sodium 138 mEq/L (136-145); Total Protein 6.6 g/dL (6.4-8.9); eGFR For African Americans > 60 (> 60); eGFR For Non-African Americans > 60 (> 60)
[2020-12-30] MEDS ORDERED: 0.9 % Sodium Chloride 1,000 ML IVC ONE (16:04)
[2020-12-30] MEDS: 0.9 % Sodium Chloride 1,000 ML IVC ONE ×2 (17:04→19:06)
[2020-12-30 18:20] LABS: Bilirubin,Urine Negative (Negative); Blood,Urine Negative (Negative); Clarity,Urine Clear (Clear); Color,Urine Yellow (Yellow); Glucose,Urine (UA) Normal (Normal); Ketones,Urine 20 mg/dL (Negative); Leukocyte Esterase,Urine Negative (Negative); Mucus,Urine Few per lpf (None-Few); Nitrite,Urine Negative (Negative); Protein,Urine 70 mg/dL (Neg-Trace); Specific Gravity,Urine > 1.030 (1.010-1.025); Squamous Epithelial Cell,Urine Few per hpf (None-Few); WBC,Urine 0-3 per hpf (0-3)
[2020-12-30 18:38] LABS: Amphetamine Screen,Urine Negative ng/mL (Cutoff=1000); Barbiturate Screen,Urine Negative ng/mL (Cutoff=200); Benzodiazepines Screen,Urine Negative ng/mL (Cutoff=200); Cannabinoid Screen,Urine Negative ng/mL (Cutoff = 50); Cocaine Screen,Urine Negative ng/mL (Cutoff= 300); Opiate Screen,Urine Negative ng/mL (Cutoff=300); Phencyclidine Screen,Urine Negative ng/mL (Cutoff=25)
[2020-12-30] MEDS ORDERED: Nicotine 21 MG PATCH.TD24 TD ONE (22:45)
[2020-12-31] MEDS ORDERED: 0.9 % Sodium Chloride 1,000 ML IVC ONE (02:49)
[2020-12-31] MEDS ORDERED: Naloxone 0.4 MG/ML INJ IVP PRN (04:03)
[2020-12-31] MEDS ORDERED: Ondansetron 4 MG/2 ML VIAL IVP PRN (04:03)
[2020-12-31] MEDS ORDERED: *HR* Metoprolol 5 MG/5 ML VIAL IVP ONE (04:06)
[2020-12-31] MEDS ORDERED: Haloperidol Lactate 5 MG/ML VIAL IVP ONE (05:10)
[2020-12-31 05:13] LABS: Hemoglobin 13.3 g/dL (12.9-16.9)
[2020-12-31 05:15] LABS: Hematocrit 40.3 % (37.5-50.1); Immature Platelets 17.5 % (1.1-6.1); Mean Corpuscular Hemoglobin 29.7 pg (28.0-33.3); Mean Platelet Volume 12.5 fL (9.4-12.4); Red Blood Count 4.48 M/mcL (4.19-5.50); White Blood Count 11.9 K/mcL (4.3-11.1)
[2020-12-31 05:34] LABS: BUN/Creatinine Ratio 12 (6-26); Blood Urea Nitrogen 9 mg/dL (8-23); Calcium 8.9 mg/dL (8.6-10.3); Carbon Dioxide 23 mEq/L (23-29); Chloride 106 mEq/L (98-107); Cholesterol 192 mg/dL (< 200); Glucose 68 mg/dL (70-105); HDL Cholesterol 63 mg/dL (40-59); LDL Cholesterol,Calculated 112 mg/dL (< 100); Magnesium 1.9 mg/dL (1.6-2.6); Osmolality,Calculated 285 (280-300); Potassium 3.6 mEq/L (3.5-5.1); Sodium 139 mEq/L (136-145); Triglycerides 83 mg/dL (< 150); eGFR For African Americans > 60 (> 60); eGFR For Non-African Americans > 60 (> 60)
[2020-12-31] MEDS ORDERED: *HR* LORazepam 2 MG/ML VIAL IVP ONE (06:41)
[2020-12-31] MEDS: Aspirin Enteric Coated 81 MG Tablet PO SCH (07:35)
[2020-12-31 09:09] LABS: Estimated Average Glucose 128 mg/dl; Hemoglobin A1C 6.1 %
[2020-12-31] MEDS ORDERED: *HR* LORazepam 2 MG/ML VIAL IVP PRN (11:10)
[2020-12-31] MEDS: 0.9 % Sodium Chloride 1,000 ML IVC SCH (11:21)
[2020-12-31 12:14] LABS: Troponin I 0.04 ng/mL (< 0.04)
[2020-12-31] MEDS ORDERED: Albuterol 2.5 MG/3 ML NEBULIZER IH PRN (17:37)
[2020-12-31] MEDS ORDERED: Ipratropium/Albuterol Neb 3 ML IH PRN (17:49)
[2020-12-31] MEDS: cloZAPine 100 MG TABLET PO SCH (20:32)
[2020-12-31] MEDS: Divalproex (24 HR) 500 MG TABLET PO SCH (20:36)
[2020-12-31] MEDS: traZODone 50 MG TABLET PO PRN (20:37)
[2021-01-01] MEDS: 0.9 % Sodium Chloride 1,000 ML IVC SCH ×3 (02:34→20:52)
[2021-01-01 05:42] LABS: Hematocrit 35.4 % (37.5-50.1); Hemoglobin 12.4 g/dL (12.9-16.9); Mean Corpuscular Volume 88.5 fL (83.0-100.0); Mean Platelet Volume 10.7 fL (9.4-12.4); Platelet Count 181 K/mcL (140-400); Red Cell Distribution Width 16.9 % (11.5-14.5)
[2021-01-01 07:34] LABS: BUN/Creatinine Ratio 9 (6-26); Blood Urea Nitrogen 7 mg/dL (8-23); Calcium 8.3 mg/dL (8.6-10.3); Carbon Dioxide 25 mEq/L (23-29); Chloride 109 mEq/L (98-107); Chol/HDL Ratio 2.9 (0-4.9); Cholesterol 157 mg/dL (< 200); Glucose 83 mg/dL (70-105); HDL Cholesterol 54 mg/dL (40-59); LDL Cholesterol,Calculated 88 mg/dL (< 100); Osmolality,Calculated 285 (280-300); Potassium 3.9 mEq/L (3.5-5.1); Sodium 139 mEq/L (136-145); Triglycerides 76 mg/dL (< 150); eGFR For African Americans > 60 (> 60); eGFR For Non-African Americans > 60 (> 60)
[2021-01-01] MEDS: Cholecalciferol (D-3) 1,000 UNIT (25MCG) TABLET PO SCH (08:46)
[2021-01-01] MEDS: Multivit/Ca/Min/Fe/FA 1 TAB TABLET PO SCH (08:46)
[2021-01-01] MEDS: MOM Conc 10 ML UD.LIQ PO SCH (08:46)
[2021-01-01] MEDS: cloZAPine 100 MG TABLET PO SCH ×3 (08:46→20:49)
[2021-01-01] MEDS: Aspirin Enteric Coated 81 MG Tablet PO SCH (08:46)
[2021-01-01] MEDS: Fluticasone Propionate Nasal 50 MCG/SPRAY BOTTLE NS SCH (08:47)
[2021-01-01] MEDS: Loratadine 10 MG TABLET PO SCH (08:47)
[2021-01-01 10:00] LABS: Adenovirus Not Detected (Not Detect); Bordetella Pertussis Not Detected (Not Detect); Chlamydophila pneumoniae Not Detected (Not Detect); Coronavirus 229E Not Detected (Not Detect); Coronavirus HKU1 Not Detected (Not Detect); Coronavirus NL63 Not Detected (Not Detect); Coronavirus OC43 Not Detected (Not Detect); Human Metapneumovirus Not Detected (Not Detect); Human Rhinovirus/Enterovirus Not Detected (Not Detect); Influenza A Subtype 2009 H1 Not Detected (Not Detect); Influenza B Not Detected (Not Detect); Mycoplasma pneumoniae Not Detected (Not Detect); Parainfluenza Virus 1 Not Detected (Not Detect); Parainfluenza Virus 2 Not Detected (Not Detect); Parainfluenza Virus 3 Not Detected (Not Detect); Parainfluenza Virus 4 Not Detected (Not Detect); Respiratory Syncytial Virus Not Detected (Not Detect); SARS-CoV-2 Not Detected (Not Detect)
[2021-01-01] MEDS: Divalproex (24 HR) 500 MG TABLET PO SCH (20:49)
[2021-01-01] MEDS: traZODone 50 MG TABLET PO PRN (20:50)
[2021-01-02 05:49] LABS: BUN/Creatinine Ratio 21 (6-26); Blood Urea Nitrogen 15 mg/dL (8-23); Calcium 8.2 mg/dL (8.6-10.3); Carbon Dioxide 20 mEq/L (23-29); Chloride 112 mEq/L (98-107); Glucose 83 mg/dL (70-105); Osmolality,Calculated 284 (280-300); Potassium 4.5 mEq/L (3.5-5.1); Sodium 137 mEq/L (136-145); eGFR For African Americans > 60 (> 60); eGFR For Non-African Americans > 60 (> 60)
[2021-01-02 06:50] LABS: Basophils # 0.1 K/mcL (0.0-0.2); Basophils % 0.7 %; Eosinophils # 0.4 K/mcL (0.0-0.6); Eosinophils % 4.3 %; Hematocrit 35.4 % (37.5-50.1); Hemoglobin 12.2 g/dL (12.9-16.9); Immature Granulocytes % 0.2 % (0-4); Lymphocytes # 2.6 K/mcL (0.6-4.6); Mean Corpuscular HGB Conc 34.5 g/dL (31.6-35.5); Mean Corpuscular Hemoglobin 30.5 pg (28.0-33.3); Mean Corpuscular Volume 88.5 fL (83.0-100.0); Mean Platelet Volume 10.8 fL (9.4-12.4); Monocytes # 0.9 K/mcL (0.0-1.3); Monocytes % 9.8 %; Neutrophils # 4.8 K/mcL (1.6-8.9); Platelet Count 186 K/mcL (140-400); Red Cell Distribution Width 17.1 % (11.5-14.5); White Blood Count 8.7 K/mcL (4.3-11.1)
[2021-01-02] MEDS: Cholecalciferol (D-3) 1,000 UNIT (25MCG) TABLET PO SCH (08:47)
[2021-01-02] MEDS: Loratadine 10 MG TABLET PO SCH (08:47)
[2021-01-02] MEDS: cloZAPine 100 MG TABLET PO SCH (08:49)
[2021-01-02] MEDS: Fluticasone Propionate Nasal 50 MCG/SPRAY BOTTLE NS SCH (08:50)
[2021-01-02] MEDS: Aspirin Enteric Coated 81 MG Tablet PO SCH (08:50)
[2021-01-02] MEDS: MOM Conc 10 ML UD.LIQ PO SCH (08:50)
[2021-01-02] MEDS: Multivit/Ca/Min/Fe/FA 1 TAB TABLET PO SCH (08:50)
[2021-01-02] MEDS: 0.9 % Sodium Chloride 1,000 ML IVC SCH (09:53)
[2021-01-02] MEDS ORDERED: Acetaminophen 325 MG TABLET PO ONE (13:08)
[2021-01-02 13:58] VITALS: BP 123/80
[2021-01-03] MEDS ORDERED: Metoprolol XL (24 HR) Succ 50 MG TAB.ER.24H PO SCH (09:00)
== END 2021-01-02 17:54 | DRG 885 ==
LOC: CDU 14:56 → EMEROOARM 14:56 → SUATTDRO 12-31 03:20 → CDU 12-31 03:52 → 3BNU 12-31 19:56 → SUATTDRO 01-01 15:31
PROVIDERS: ADMIT Student in an Organized Health Care Education/Training Program; ATTEND Internal Medicine

== ENCOUNTER 2021-12-25 09:11 | Inpatient (IN) ==
[2021-12-25] MEDS ORDERED: Albuterol 2.5 MG/3 ML NEBULIZER IH ONE (09:47)
[2021-12-25] MEDS ORDERED: Ipratropium/Albuterol Neb 3 ML IH ONE (09:47)
[2021-12-25] MEDS ORDERED: methylPREDNISolone 125 MG/2 ML VIAL IVP ONE (09:47)
[2021-12-25 10:13] LABS: Basophils % 0.1 %; Eosinophils % 0.1 %; Hematocrit 48.5 % (37.5-50.1); Hemoglobin 15.2 g/dL (12.9-16.9); Immature Granulocytes % 0.5 % (0-4); Mean Corpuscular HGB Conc 31.3 g/dL (31.6-35.5); Mean Corpuscular Hemoglobin 31.3 pg (28.0-33.3); Mean Corpuscular Volume 99.8 fL (83.0-100.0); Mean Platelet Volume 11.9 fL (9.4-12.4); Monocytes # 0.2 K/mcL (0.0-1.3); Monocytes % 2.3 %; Neutrophils # 8.3 K/mcL (1.6-8.9); Platelet Count 243 K/mcL (140-400); Red Blood Count 4.86 M/mcL (4.19-5.50); Red Cell Distribution Width 16.9 % (11.5-14.5); White Blood Count 9.5 K/mcL (4.3-11.1)
[2021-12-25 10:33] LABS: Alanine Aminotransferase 13 Units/L (7-52); Albumin 4.5 g/dL (3.5-5.7); Albumin/Globulin Ratio 1.7 (1.1-2.2); Alkaline Phosphatase 75 Units/L (34-104); Aspartate Amino Transferase 22 Units/L (13-39); BUN/Creatinine Ratio 11 (6-26); Bilirubin,Total 0.4 mg/dL (0.3-1.0); Blood Urea Nitrogen 12 mg/dL (8-23); Calcium 10.7 mg/dL (8.6-10.3); Carbon Dioxide 34 mEq/L (23-29); Chloride 101 mEq/L (98-107); Globulin 2.7 g/dL (2.4-3.5); Glucose 146 mg/dL (70-105); Osmolality,Calculated 298 (280-300); Potassium 4.7 mEq/L (3.5-5.1); Sodium 143 mEq/L (136-145); Total Protein 7.2 g/dL (6.4-8.9); Troponin I < 0.03 ng/mL (< 0.04); eGFR For African Americans > 60 (> 60); eGFR For Non-African Americans > 60 (> 60)
[2021-12-25 10:59] LABS: ABG Base Excess 6 mEq/L (-2 to 3); ABG Chloride 103 mEq/L (98-107); ABG Glucose 112 mg/dL (60-95); ABG HCO3 33 mEq/L (21-27); ABG Ionized Calcium 1.35 mmol/L (1.15-1.35); ABG Oxygen Saturation 93 % (95-98); ABG PCO2 58 mmHg (35-45); ABG PH 7.37 pH Units (7.32-7.45); ABG PO2 71 mmHg (85-104); ABG TCO2 35 mEq/L (20-26)
[2021-12-25 11:02] LABS: Adenovirus Not Detected (Not Detect); Bordetella Pertussis Not Detected (Not Detect); Chlamydophila pneumoniae Not Detected (Not Detect); Coronavirus 229E Not Detected (Not Detect); Coronavirus HKU1 Not Detected (Not Detect); Coronavirus NL63 Not Detected (Not Detect); Coronavirus OC43 Not Detected (Not Detect); Human Metapneumovirus Not Detected (Not Detect); Human Rhinovirus/Enterovirus Not Detected (Not Detect); Influenza A Subtype 2009 H1 Not Detected (Not Detect); Influenza B Not Detected (Not Detect); Mycoplasma pneumoniae Not Detected (Not Detect); Parainfluenza Virus 1 Not Detected (Not Detect); Parainfluenza Virus 2 Not Detected (Not Detect); Parainfluenza Virus 3 DETECTED (Not Detect); Parainfluenza Virus 4 Not Detected (Not Detect); Respiratory Syncytial Virus Not Detected (Not Detect); SARS-CoV-2 Not Detected (Not Detect)
[2021-12-25] MEDS ORDERED: Naloxone 0.4 MG/ML INJ IVP PRN (15:19)
[2021-12-25] MEDS ORDERED: Acetaminophen 325 MG TABLET PO PRN (15:19)
[2021-12-25] MEDS ORDERED: Ipratropium/Albuterol Neb 3 ML IH PRN (15:48)
[2021-12-25] MEDS ORDERED: Benzonatate 100 MG CAPSULE PO PRN (15:49)
[2021-12-25] MEDS ORDERED: haloperidoL 5 MG TABLET PO PRN (17:34)
[2021-12-25] MEDS ORDERED: *HR* LORazepam 1 MG TABLET PO PRN (17:34)
[2021-12-25] MEDS ORDERED: traZODone 50 MG TABLET PO PRN (17:34)
[2021-12-25] MEDS: cloZAPine 100 MG TABLET PO SCH (20:17)
[2021-12-25] MEDS: Melatonin 3 MG TABLET PO SCH (20:17)
[2021-12-25] MEDS: Lithium Carbonate 300 MG CAPSULE PO SCH (20:17)
[2021-12-25] MEDS: Divalproex (24 HR) 500 MG TABLET PO SCH (20:17)
[2021-12-26] MEDS: Aspirin Enteric Coated 81 MG Tablet PO SCH (09:33)
[2021-12-26] MEDS: predniSONE 20 MG TABLET PO SCH (09:33)
[2021-12-26] MEDS: cloZAPine 100 MG TABLET PO SCH ×3 (09:33→20:52)
[2021-12-26] MEDS: Lithium Carbonate 300 MG CAPSULE PO SCH ×2 (09:33→20:48)
[2021-12-26] MEDS: Albuterol 2.5 MG/3 ML NEBULIZER IH SCH ×3 (15:16→19:59)
[2021-12-26] MEDS ORDERED: Sennosides 8.6 MG TABLET PO ONE (18:15)
[2021-12-26] MEDS: Divalproex (24 HR) 500 MG TABLET PO SCH (20:48)
[2021-12-26] MEDS: Melatonin 3 MG TABLET PO SCH (20:50)
[2021-12-27 02:24] LABS: Basophils % 0.1 %; Eosinophils # 0.2 K/mcL (0.0-0.6); Immature Granulocytes % 0.3 % (0-4); Lymphocytes # 1.5 K/mcL (0.6-4.6); Lymphocytes % 15.3 %; Mean Corpuscular HGB Conc 31.9 g/dL (31.6-35.5); Mean Corpuscular Hemoglobin 30.6 pg (28.0-33.3); Mean Corpuscular Volume 96.1 fL (83.0-100.0); Mean Platelet Volume 11.7 fL (9.4-12.4); Monocytes # 0.5 K/mcL (0.0-1.3); Monocytes % 5.3 %; Neutrophils # 7.7 K/mcL (1.6-8.9); Platelet Count 168 K/mcL (140-400); Red Blood Count 3.85 M/mcL (4.19-5.50)
[2021-12-27 02:25] LABS: Hemoglobin 11.8 g/dL (12.9-16.9)
[2021-12-27] MEDS: Albuterol 2.5 MG/3 ML NEBULIZER IH SCH ×4 (04:35→20:09)
[2021-12-27] MEDS: Lithium Carbonate 300 MG CAPSULE PO SCH ×2 (08:05→20:46)
[2021-12-27] MEDS: Aspirin Enteric Coated 81 MG Tablet PO SCH (08:05)
[2021-12-27] MEDS: predniSONE 20 MG TABLET PO SCH (08:05)
[2021-12-27] MEDS: cloZAPine 100 MG TABLET PO SCH ×3 (08:06→20:46)
[2021-12-27 11:00] LABS: Hemoglobin 12.3 g/dL (12.9-16.9)
[2021-12-27] MEDS ORDERED: Iopamidol - 370 500 ML MLS IVP ONE (12:57)
[2021-12-27] MEDS: Divalproex (24 HR) 500 MG TABLET PO SCH (20:46)
[2021-12-27] MEDS: Melatonin 3 MG TABLET PO SCH (20:46)
[2021-12-28] MEDS: Albuterol 2.5 MG/3 ML NEBULIZER IH SCH ×4 (03:59→21:24)
[2021-12-28 04:46] LABS: Basophils % 0.2 %; Eosinophils # 0.3 K/mcL (0.0-0.6); Eosinophils % 2.6 %; Hematocrit 38.2 % (37.5-50.1); Hemoglobin 12.3 g/dL (12.9-16.9); Immature Granulocytes % 0.4 % (0-4); Lymphocytes # 2.5 K/mcL (0.6-4.6); Lymphocytes % 23.3 %; Mean Corpuscular HGB Conc 32.2 g/dL (31.6-35.5); Mean Corpuscular Volume 96.2 fL (83.0-100.0); Mean Platelet Volume 12.4 fL (9.4-12.4); Monocytes # 0.6 K/mcL (0.0-1.3); Monocytes % 5.2 %; Neutrophils # 7.2 K/mcL (1.6-8.9); Platelet Count 157 K/mcL (140-400); Red Blood Count 3.97 M/mcL (4.19-5.50); Red Cell Distribution Width 17.2 % (11.5-14.5); Segmented Neutrophils % 68.3 %; White Blood Count 10.5 K/mcL (4.3-11.1)
[2021-12-28 04:58] LABS: BUN/Creatinine Ratio 17 (6-26); Blood Urea Nitrogen 13 mg/dL (8-23); Calcium 8.8 mg/dL (8.6-10.3); Carbon Dioxide 32 mEq/L (23-29); Chloride 106 mEq/L (98-107); Glucose 82 mg/dL (70-105); Osmolality,Calculated 289 (280-300); Potassium 4.3 mEq/L (3.5-5.1); Sodium 140 mEq/L (136-145); eGFR For African Americans > 60 (> 60); eGFR For Non-African Americans > 60 (> 60)
[2021-12-28] MEDS: cloZAPine 100 MG TABLET PO SCH ×3 (08:49→21:02)
[2021-12-28] MEDS: Aspirin Enteric Coated 81 MG Tablet PO SCH (08:50)
[2021-12-28] MEDS: predniSONE 20 MG TABLET PO SCH (08:50)
[2021-12-28] MEDS: Lithium Carbonate 300 MG CAPSULE PO SCH ×2 (08:51→21:02)
[2021-12-28] MEDS ORDERED: predniSONE 20 MG TABLET PO ONE (11:21)
[2021-12-28] MEDS: Melatonin 3 MG TABLET PO SCH (21:02)
[2021-12-28] MEDS: Divalproex (24 HR) 500 MG TABLET PO SCH (21:02)
[2021-12-28] MEDS: Budesonide/Formoterol 80/4.5 1 PUFF INH IH SCH (21:24)
[2021-12-29] MEDS: Albuterol 2.5 MG/3 ML NEBULIZER IH SCH ×2 (04:23→09:13)
[2021-12-29] MEDS ORDERED: predniSONE 20 MG TABLET PO SCH (09:00)
[2021-12-29] MEDS: Lithium Carbonate 300 MG CAPSULE PO SCH (09:03)
[2021-12-29] MEDS: cloZAPine 100 MG TABLET PO SCH (09:03)
[2021-12-29] MEDS: Aspirin Enteric Coated 81 MG Tablet PO SCH (09:03)
[2021-12-29] MEDS: Budesonide/Formoterol 80/4.5 1 PUFF INH IH SCH (09:13)
[2021-12-29 12:06] VITALS: BP 110/71; PULSE 100; TEMP 98; O2SAT 93
[2021-12-29 13:10] LABS: Influenza A PCR Negative (Negative); Influenza B PCR Negative (Negative); Resp. Syncytial Virus PCR Negative (Negative)
[2021-12-29 13:11] LABS: SARS-CoV-2 by PCR (In House) Negative (Negative)
== END 2021-12-29 15:38 | DRG 865 ==
LOC: 3ANU 09:11 → EMEROOARM 09:11 → SUATTDRO 15:16 → 3ANU 16:51
PROVIDERS: ADMIT Hospitalist; ATTEND Internal Medicine